=== PATIENT | male | born 1960 | race Caucasian/White ===

== ENCOUNTER 2020-05-29 22:39 | Inpatient (IN) | payer OTHER ==
[~2020-05-29] VITALS: Ht 180.3 cm; Wt 84.9 kg
[2020-05-29] MEDS ORDERED: MAGNESIUM SULFATE 1GM/100ML D5W BAG (10MG/ML) As Ordered ONE (22:56)
[2020-05-29] MEDS ORDERED: ADVA230A INH (23:22)
[2020-05-29] MEDS ORDERED: ALBU8.5H INH (23:22)
[2020-05-29] MEDS ORDERED: LANTINJ4 SC (23:22)
[2020-05-29 23:23] LABS: BASO # 0.1 10^3/uL (0.0-0.2); BASO % 0.6 % (0.0-1.0); EOS # 0.3 10^3/uL (0.0-0.5); EOS % 1.7 % (0.0-3.0); HEMATOCRIT 42.6 % (42.0-52.0); HEMOGLOBIN 13.7 g/dl (13.5-17.5); LYMPH # 2.2 10^3/uL (1.5-5.0); LYMPH % 13.9 % (24.0-44.0); MEAN CORPUSCULAR HEMOGLOBIN 28.9 pg (27.0-33.0); MEAN CORPUSCULAR HGB CONC 32.2 g/dl (32.0-36.5); MEAN CORPUSCULAR VOLUME 89.9 fl (80.0-96.0); MONO % 6.7 % (0.0-5.0); NEUTROPHILS # 11.7 10^3/uL (1.5-8.5); NEUTROPHILS % 76.1 % (36.0-66.0); PLATELET COUNT, AUTOMATED 291 10^3/uL (150-450); RED BLOOD COUNT 4.74 10^6/uL (4.30-6.10); WHITE BLOOD COUNT 15.4 10^3/uL (4.0-10.0)
[2020-05-29] MEDS ORDERED: cefTRIAXone SOD 2 GM in D5W MINI-BAG PLUS 50 ML IV ONE (23:30)
[2020-05-29 23:49] LABS: ALBUMIN 3.5 GM/DL (3.2-5.2); ALT/SGPT 31 U/L (12-78); BILIRUBIN,DIRECT 0.2 MG/DL (0.0-0.2); BILIRUBIN,TOTAL 0.6 MG/DL (0.2-1.0); BLOOD UREA NITROGEN 17 MG/DL (7-18); CALCIUM LEVEL 8.2 MG/DL (8.5-10.1); CARBON DIOXIDE LEVEL 24 MEQ/L (21-32); CHLORIDE LEVEL 103 MEQ/L (98-107); CREATININE FOR GFR 1.11 MG/DL (0.70-1.30); GLOMERULAR FILTRATION RATE > 60.0 (>56); GLUCOSE, FASTING 343 MG/DL (70-100); NT-PRO BNP 1292 PG/ML (<125); POTASSIUM SERUM 4.1 MEQ/L (3.5-5.1); SODIUM LEVEL 137 MEQ/L (136-145)
--- NOTE | 2020-05-29 23:58 | HPEPDOC ---
[facility] Medical History & Physical Date of Admission May 29, 2020 Date of Service: May 30, 2020 Attending Physician: JUSTINE RODRIGUEZ MD History and Physical TIME OF SERVICE: 12:10 AM CHIEF COMPLAINT: Shortness of breath HISTORY OF PRESENT ILLNESS: This is a 60-year-old gentleman who was brought in [facility] for evaluation of 3 day duration, gradually worsening shortness of breath associated with a cough. He denied having any fevers, chills, chest pain, abdominal pain or lower extremity edema, but admitted to having back pain and muscle aches. He denies having any sick contacts. Per Dr[facility] Wyman at the [facility], the patient given nebs and was noted to be hypoxic, but he refused to wear O2; in the ER, he was noted to have a pH of 7.15 with a PCO2 of 63 and agreed to wear BiPAP; he also received ceftriaxone for bilateral pneumonia. 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) IDDM SOCIAL HISTORY: Is been smoking for 40 years He denies drinking alcohol He denies recreational drug use He is incarcerated FAMILY HISTORY: Diabetes ALLERGIES: Please see below HOME MEDICATIONS: Please see below PHYSICAL EXAMINATION: Vital Signs Date Time Temp Pulse Resp B/P (MAP) Pulse Ox O2 Delivery O2 Flow Rate FiO2 05/29/20 22:48 96.7 133 38 163/92 55 Room Air 05/29/20 23:15 100 GEN: well nourished / well developed/ NAD INTEGUMENT: He doesn't have facial plethora/ He has multiple tattoos on his arms and abdomen HEENT:NCAT / BiPAP mask is in place CVS: He is tachycardic/ / radial pulses intact / no lower extremity edema LUNGS: He is able to speak full sentences without stopping to take a breath / He is using accessory muscles / He doesn't have decreased respiratory expansion/ He has coarse expiratory rhonchi bilaterally ABDOMEN: Distended/there are no masses or lesions MSK/EXTREMITIES: Arms and ankles are handcuffed, therefore, unable to assess range of motion NEURO: CN 2-12 are grossly intact / speech is not dysarthric PSYCH: alert and oriented / able to understand and follow all commands LABORATORY DATA: 05/29/20 23:12 05/29/20 22:59: POC pH (Misc Panel) 7.151*L, POC Base Excess (Misc Panel) -7.0L, POC Saturated Percent O2 (Misc) 92L, POC pO2 (Misc Panel) 84.0, POC pCO2 (Misc Panel) 63.1*H, POC HCO3 (Misc Panel) 22.1, POC Total CO2 (Misc Panel) 24.0 05/29/20 23:01: Bedside Glucose (Misc Panel) 327H 05/29/20 23:12: Immature Granulocyte % (Auto) 1.0, Neutrophils (%) (Auto) 76.1H, Lymphocytes (%) (Auto) 13.9L, Monocytes (%) (Auto) 6.7H, Eosinophils (%) (Auto) 1.7, Basophils (%) (Auto) 0.6, Neutrophils # (Auto) 11.7H, Lymphocytes # (Auto) 2.2, Monocytes # (Auto) 1.0H, Eosinophils # (Auto) 0.3, Basophils # (Auto) 0.1, Nucleated Red Blood Cells % (auto) 0.0, Anion Gap 10, Glomerular Filtration Rate > 60.0, Calcium Level 8.2L, Total Bilirubin 0.6, Direct Bilirubin 0.2, Aspartate Amino Transf (AST/SGOT) 24, Alanine Aminotransferase (ALT/SGPT) 31, Alkaline Phosphatase 64, QL-Xby-T-Type Natriuretic Peptide 1292H, Total Protein 7.0, Albumin 3.5, Albumin/Globulin Ratio 1.0 05/29/20 23:17: POC Troponin I (Misc) 0.03 05/29/20 23:21: POC Glucose (Misc Panel) 350H, POC Sodium (Misc Panel) 137, POC Potassium (Misc Panel) 3.8, POC Chloride (Misc Panel) 100, POC Total CO2 (Misc Panel) 22.0L, POC Blood Urea Nitrogen (Misc Panel 17, POC Ionized Calcium (Misc Panel) 4.5, POC Creatinine (Misc Panel) 0.9, POC Hematocrit (Misc Panel) 44.0 05/29/20 23:43: POC Total CO2 (Misc Panel) 25.0, POC pH (Misc Panel) 7.255L, POC Base Excess (Misc Panel) -3.0L, POC Saturated Percent O2 (Misc) 99H, POC pO2 (Misc Panel) 175.0H, POC pCO2 (Misc Panel) 53.4H, POC HCO3 (Misc Panel) 23.7 IMAGING: Chest x-ray: Based on bilateral visualization there appeared to be bilateral hazy infiltrates, more prominent on the right versus the left , but the final read is pending MICROBIOLOGY: 05/29/20 Blood Culture, Received Pending 05/29/20 Blood Culture, Received Pending 05/29/20 Respiratory Virus Panel (PCR) ([facility]) - Final, Complete ASSESSMENT: Mr. Rivera is a 60-year-old with a history of IDDM and COPD will be admitted for management of acute hypercapnic respiratory failure and acute COPD secondary to pneumonia. PLAN: 1. Acute Hypercapnic Respiratory Failure Based on chest x-ray likely 2/2 PNA His respiratory panel was negative BNP was elevated Plan: Admit to ICU / Pulm consult for BiPAP co-management (indications for BIPAP in this pt include RR of 38, pH of 7.15 & PaCO2 of 63) / while on BIPAP NPO with breaks for sips of water to reduce risk of aspiration / repeat ABG in the morning / treat PNA and COPD / f/u Echo to r/o Pulm HTN 2. Sepsis likely 2/2 PNA SIRS criteria include: HR >90 / WBC >12 / RR >20 PORT/PSI Score to predict risk of mortality in pt w CAP = 138 points = class V risk = 27-29.2% mortality Plan: telemetry / Sepsis protocol w lactic acid /continuous pulse ox & supplemental O2/ ceftriaxone, doxycycline, and vancomycin pending blood cx, sputum Cx, MRSA, strep pneumonia and legionella results/ Acetaminophen PRN for fever / target MAP of at least 65 / f/u Is and Os with target UOP of at least 0.5 ml/kg/H / target serum glucose 140-180 while acutely ill / f/u final chest x-ray report 3. Acute COPD 2/2 PNA Plan supplemental O2 / continuous pulse oximetry / aspiration precautions f/u ABG in the morning / Dunebs Q6H, Albuterol Q1HP, Solumedrol w IV PPI / abx as above / refer to Reflexologist for repeat PFTs and Pulmonary Rehab within 90 days of d/c which has been shown to reduce mortality 4. IDDM He denies having associated retinopathy, nephropathy or neuropathy Plan: f/u accuchecks & A1C / hypoglycemia protocol / sliding scale insulin / hold home meds (, metformin, Januvia, and glargine ) DVT PROPHYLAXIS: Lovenox DISPOSITION: Back into police custody after at least two midnight's stay LATE ENTRY 210AM I was called by the patient's RN because the pt asked to be intubated. On assessment the patient was more tachypneic w a HR in the 20s to 30s, using accessory muscles, diaphoretic and having difficulties speaking full sentences. Plan: we will consult Anesthesia to intubate him and call for vent management Home Medications Scheduled Fluticasone Propion/Salmeterol (Advair Hfa 230-21 Mcg Inhaler) 12 Gm Hfa.aer.ad, 2 PUFF INH BID Insulin Glargine,Hum.rec.anlog (Lantus Solostar) 100 Unit/1 Ml Insuln.pen, 10 UNITS SC QPM TAKES AROUND 1600 Metformin HCl (Metformin HCl) 1,000 Mg Tablet, 1,000 MG PO BID Sitagliptin Phosphate (Januvia) 100 Mg Tablet, 100 MG PO DAILY Scheduled PRN Albuterol Sulfate (Proair Hfa) 8.5 Gm Hfa.aer.ad, 2 PUFF INH Q4H PRN for SHORTNESS OF BREATH Ibuprofen (Ibuprofen) 600 Mg Tablet, 600 MG PO BID PRN for PAIN Allergies Coded Allergies: haloperidol (Verified Allergy, Intermediate, unknown, 05/29/20) A-FIB/CHADSVASC A-FIB History Current/History of A-Fib/PAF?: No Current PO Anticoag Therapy: No JUSTINE RODRIGUEZ MD May 29, 2020 23:57
[2020-05-30] VITALS (40 sets, daily range): BP systolic 72–181; BP diastolic 47–111; O2SAT 94
[2020-05-30] MEDS ORDERED: MOM 30ML SUSPENSION UDC PO PRN
[2020-05-30] MEDS ORDERED: ACETAMINOPHEN TAB 650MG DOSE (2X325MG) PO PRN
[2020-05-30] MEDS ORDERED: ALBUTEROL SULFATE 2.5 MG/0.5 ML INH NEB SOLN INH PRN
[2020-05-30] MEDS ORDERED: MAALOX 30 ML SUSP *UDC PO PRN
[2020-05-30] MEDS ORDERED: NS 2,700 ML in IV 1 EA IV ONE ×2
[2020-05-30] MEDS ORDERED: ADVA230A INH (00:27)
[2020-05-30] MEDS ORDERED: METF-877 PO (00:27)
[2020-05-30] MEDS ORDERED: JANU100T PO (00:27)
[2020-05-30] MEDS ORDERED: IBUP1TAB6 PO (00:27)
[2020-05-30] MEDS ORDERED: PROAAER10 INH (00:27)
[2020-05-30] MEDS ORDERED: LANTINJ4 SC (00:27)
[2020-05-30] MEDS ORDERED: methylPREDNISolone INJ 125 MG/2 ML VIAL (J2930) IV SCH (01:00)
[2020-05-30] MEDS ORDERED: DEXTROSE 50% 50 ML SYRINGE IV PRN (01:00)
[2020-05-30] MEDS ORDERED: VANCOMYCIN HCL 1,000 MG, VIAL MATE ADAPTER 1 EACH in D5W 250 ML IV ONE (01:00)
[2020-05-30] MEDS ORDERED: GLUCAGON INJ 1MG VIAL SC PRN (01:00)
[2020-05-30] MEDS ORDERED: GLUCOSE 4GM CHEW TABLET PO PRN (01:00)
[2020-05-30 01:14] LABS: HEMOGLOBIN A1c 6.6 %
[2020-05-30 01:18] LABS: TROPONIN I 0.02 NG/ML (< 0.10)
[2020-05-30] MEDS: IPRATROPIUM 0.5MG/ALBUTEROL 2.5MG INH SOL UD 3ML (DUONEB) INH SCH ×6 (01:32→19:53)
[2020-05-30] MEDS ORDERED: PROPOFOL 1,000 MG/100 ML VIAL As Ordered ONE (02:12)
[2020-05-30] MEDS ORDERED: ETOMIDATE INJ 20MG/10ML VIAL As Ordered ONE (02:14)
[2020-05-30] MEDS ORDERED: SUCCINYLCHOLINE INJ 200 MG/10 ML VIAL (J0330) As Ordered ONE (02:14)
[2020-05-30] MEDS ORDERED: MIDAZOLAM INJ 2MG/2ML VIAL (J2250 PER 1MG) As Ordered ONE (02:46)
[2020-05-30 03:01] LABS: HEMATOCRIT 38.7 % (42.0-52.0); HEMOGLOBIN 12.5 g/dl (13.5-17.5); MEAN CORPUSCULAR HEMOGLOBIN 29.3 pg (27.0-33.0); MEAN CORPUSCULAR HGB CONC 32.3 g/dl (32.0-36.5); MEAN CORPUSCULAR VOLUME 90.8 fl (80.0-96.0); PLATELET COUNT, AUTOMATED 211 10^3/uL (150-450); RED BLOOD COUNT 4.26 10^6/uL (4.30-6.10); WHITE BLOOD COUNT 14.7 10^3/uL (4.0-10.0)
[2020-05-30] MEDS: MIDAZOLAM INJ 2MG/2ML VIAL (J2250 PER 1MG) IV PRN ×7 (03:12→20:23)
[2020-05-30] MEDS: propofoL 1,000 MG in IV 1 EA IV SCH ×6 (03:13→23:44)
[2020-05-30] MEDS: DOXYCYCLINE HYCLATE 100 MG in D5W MINI-BAG PLUS 100 ML IV SCH ×2 (03:14→14:34)
[2020-05-30 03:18] LABS: ABG BASE EXCESS -7.3 (-2.0-2.0); ABG HCO3 21.2 MEQ/L (22.0-26.0); ABG O2 SATURATION 94.4 % (95.0-99.0); ABG PARTIAL PRESSURE CO2 56.2 mmHg (35.0-45.0); ABG PARTIAL PRESSURE O2 84.2 mmHg (75.0-100.0); ABG STANDARD HCO3 18.5 MEQ/L (22.0-26.0); ABG pH (ARTERIAL) 7.195 UNITS (7.350-7.450)
[2020-05-30 03:25] LABS: BLOOD UREA NITROGEN 16 MG/DL (7-18); CALCIUM LEVEL 6.8 MG/DL (8.5-10.1); CARBON DIOXIDE LEVEL 23 MEQ/L (21-32); CHLORIDE LEVEL 108 MEQ/L (98-107); CREATININE FOR GFR 0.79 MG/DL (0.70-1.30); GLOMERULAR FILTRATION RATE > 60.0 (>56); GLUCOSE, FASTING 255 MG/DL (70-100); MAGNESIUM LEVEL 2.1 MG/DL (1.8-2.4); POTASSIUM SERUM 4.3 MEQ/L (3.5-5.1); SODIUM LEVEL 136 MEQ/L (136-145)
[2020-05-30] MEDS ORDERED: VANCOMYCIN HCL 1,000 MG, VIAL MATE ADAPTER 1 EACH in D5W 250 ML IV SCH (04:00)
[2020-05-30 04:03] LABS: BASO % 0.1 % (0.0-1.0); EOS % 0.1 % (0.0-3.0); LYMPH # 0.4 10^3/uL (1.5-5.0); LYMPH % 2.4 % (24.0-44.0); MONO # 0.2 10^3/uL (0.0-0.8); MONO % 1.3 % (0.0-5.0); NEUTROPHILS # 14.2 10^3/uL (1.5-8.5); NEUTROPHILS % 95.7 % (36.0-66.0)
[2020-05-30 04:13] LABS: PLATELET ESTIMATE NORMAL (NORMAL)
[2020-05-30 04:19] LABS: ALBUMIN 3.1 GM/DL (3.2-5.2); ALT/SGPT 30 U/L (12-78); BILIRUBIN,TOTAL 0.7 MG/DL (0.2-1.0); CHOLESTEROL LEVEL 140 MG/DL (< 200); CPK CREATINE PHOSPHOKINASE 160 U/L (39-308); LDH LACTATE DEHYDROGENASE 208 U/L (87-241); PHOSPHORUS LEVEL 2.6 MG/DL (2.5-4.9); TOTAL PROTEIN 6.4 GM/DL (6.4-8.2); TRIGLYCERIDES LEVEL 108 MG/DL (<150)
[2020-05-30] MEDS ORDERED: SUCCINYLCHOLINE 100 MG/5 ML SYRINGE (J0330) ONE (05:07)
[2020-05-30] MEDS ORDERED: propofoL 200 MG/20 ML VIAL ONE (05:07)
[2020-05-30] MEDS ORDERED: NS 1,000 ML IV SCH (05:45)
[2020-05-30 05:49] LABS: ABG BASE EXCESS -2.8 (-2.0-2.0); ABG HCO3 20.2 MEQ/L (22.0-26.0); ABG O2 SATURATION 97.5 % (95.0-99.0); ABG PARTIAL PRESSURE CO2 29.7 mmHg (35.0-45.0); ABG PARTIAL PRESSURE O2 88.2 mmHg (75.0-100.0); ABG STANDARD HCO3 22.1 MEQ/L (22.0-26.0); ABG TOTAL CO2 21.1 MEQ/L (22.0-29.0)
[2020-05-30] MEDS: HumaLOG INSULIN (NovoLOG) PER UNIT SC SCH ×5 (05:54→23:43)
[2020-05-30 06:39] LABS: FERRITIN 88 NG/ML (26-388); IRON (FE) 26 UG/DL (65-175); PERCENT SATURATION 9.5 % (19.7-50.0); TOTAL IRON BINDING CAPACITY 275 UG/DL (250-450)
--- NOTE | 2020-05-30 07:48 | REP ---
Clinical: Shortness of breath. Comparison: None. Findings: Chronic COPD/emphysematous changes are suggested with superimposed lower lobe infiltrates and suspected small effusions (right greater than left). No pneumothorax. Cardiac silhouette appears to be upper limits of normal. Skeletal structures are intact. Impression: Diffuse bilateral infiltrates and small pleural effusions compatible with multifocal pneumonia. Electronically Signed by Alvino Forrester MD 05/30/2020 07:39 A
--- NOTE | 2020-05-30 07:51 | CCN ---
DATE: 05/30/2020 I was called to the intensive care unit to evaluate this 60-year-old male just intubated for respiratory failure. He presented earlier to the emergency department from the nursing home with dyspnea and was treated with oxygen therapy and subsequently noninvasive ventilation and transferred to the intensive care unit. Initial arterial blood gases showed hypercarbia and respiratory acidosis. His symptoms worsened and an endotracheal tube was placed and I was called. At bedside, he is sedate now with propofol, dyssynchronous from mechanical ventilation. His temperature is 98, pulse rate 109, respirations 28, blood pressure 120/69. HEENT: His pupils are small. There is an endotracheal tube at 23 cm. Orogastric tube is in good position. His neck is supple. Jugular venous distention is not clearly appreciated. The patient is straining against mechanical ventilation. Heart sounds are regular without appreciable murmur. Breath sounds have diffuse expiratory wheezes bilaterally. Chest is symmetric and moves symmetrically. Expiratory phase is prolonged. Abdomen: Soft, obese. Bowel sounds are hypoactive. Extremities: Show pulses x4. Diagnostic Studies: White cell count is 15.4, 76% neutrophils, 0 bands. Hemoglobin 13.7, hematocrit 42.6, platelet count 291,000. Sodium is 137, potassium 4.1, chloride 103, CO2 24, BUN 17, creatinine 1.1, glucose 343, calcium 8.2, albumin is 3.5, AST 24, ALT 31. Arterial blood gases at 2343 show a pH of 7.25, pCO2 53 and pO2 175. Chest imaging shows bilateral interstitial infiltrates, more consolidation on the right. The primary problem requiring critical attention is acute hypercarbic hypoxic respiratory failure - the patient's compliance is poor. Will ventilate with pressure control and recheck arterial blood gases. He is dyssynchronous from the ventilator at this point and pending his response to sedation may need paralysis to optimize ventilation. The patient also suffers from interstitial pneumonia versus acute respiratory distress syndrome (ARDS). Broad-spectrum antibiotics have been started. The patient did not have a significantly elevated temperature and white cell count was only marginally elevated. There is no shift. Will maintain a low fluid volume replacement pending response and cultures. Bronchospasm. Beta agonists have been given. I will increase the steroid dose to 80 every 8 hours. Deep vein thrombosis (DVT) prophylaxis is being addressed with Lovenox. Ulcer prophylaxis will be addressed with Protonix. The patient is hyperglycemic. Fingerstick blood sugars have been ordered. Will arrange for insulin coverage. I have reviewed the case with the attending hospitalist and the intensive care unit (ICU) staff. 1 hour and 26 minutes was spent in the provision of bedside critical care and coordination, exclusive of any procedure time.
--- NOTE | 2020-05-30 07:53 | REP ---
Clinical: Status post intubation. Comparison: 05/29/2020. Findings: Endotracheal tube approximately 4 cm above the gurpreet. Nasogastric tube extends just beyond the diaphragm and warrants advancement to ensure that the side port is below the level of the diaphragm and within the stomach. The cardiac silhouette is normal for portable technique. Lung cruz demonstrate chronic emphysematous changes with superimposed bilateral infiltrates (right greater than left) and possible small pleural reactions. Impression: 1. Endotracheal tube in satisfactory position. 2. Nasogastric tube warrants advancement. 3. Bilateral multifocal infiltrates (right greater than left) similar to prior examination. Electronically Signed by Alvino Forrester MD 05/30/2020 07:45 A
--- NOTE | 2020-05-30 08:26 | REP ---
Portable chest x-ray: Single view. 08:06 a.m. film. History: Question ARDS. Comparison chest x-ray: 02:40 a.m. film on this same date, to June 17, 2020. Findings: Endotracheal tube is seen in good position just below the proximal clavicles. An NG tube courses into the left upper quadrant. Oxygen delivery tubing and monitoring electrodes are seen overlying the chest. The lung cruz have improved with less interstitial edema diffusely. There are air bronchograms and persistent parenchymal opacity particularly on the right suggesting an infiltrate on the right. No mike pleural effusion is evident. Cardiomediastinal silhouette is unchanged. Electronically Signed by Ismael Hughes MD 05/30/2020 08:18 A
[2020-05-30] MEDS: PANTOPRAZOLE 40MG VIAL (C9113 PER 1) IV SCH (08:53)
[2020-05-30] MEDS: methylPREDNISolone INJ 125 MG/2 ML VIAL (J2930) IV SCH ×2 (08:53→17:20)
[2020-05-30] MEDS: CHLORHEXIDINE GLUCONATE 0.12 % 15ML UDC (PERIDEX ORAL RINSE) MT SCH ×2 (08:53→19:43)
[2020-05-30] MEDS: ENOXAPARIN 40MG/0.4ML SYRINGE (J1650 PER 10MG) SC SCH (08:53)
[2020-05-30] MEDS ORDERED: predniSONE 20 MG TAB PO SCH (09:00)
[2020-05-30] MEDS ORDERED: PANTOPRAZOLE 40MG TAB (PROTONIX) PO SCH (09:00)
[2020-05-30 10:18] LABS: ABG BASE EXCESS -2.7 (-2.0-2.0); ABG HCO3 19.7 MEQ/L (22.0-26.0); ABG O2 SATURATION 98.7 % (95.0-99.0); ABG PARTIAL PRESSURE CO2 27.6 mmHg (35.0-45.0); ABG PARTIAL PRESSURE O2 116.9 mmHg (75.0-100.0); ABG STANDARD HCO3 22.2 MEQ/L (22.0-26.0); ABG TOTAL CO2 20.5 MEQ/L (22.0-29.0); ABG pH (ARTERIAL) 7.471 UNITS (7.350-7.450)
[2020-05-30 13:15] LABS: CK-MB VALUE MASS 2.7 NG/ML (<3.6); MB/CK RELATIVE INDEX 1.49 (< OR =4)
--- NOTE | 2020-05-30 13:19 | IPNPDOC ---
Date Seen The patient was seen on 05/30/20. Progress Note SUBJECTIVE: Patient was seen and examined this morning lying in bed, intubated and sedated. He responds appropriately to painful stimuli. Otherwise, no subjective history could be obtained from patient. OBJECTIVE PHYSICAL EXAMINATION: VITAL SIGNS: Please see below. GENERAL: Alert, comfortable, in no acute distress HEENT: Normocephalic, atraumatic, PERRLA, endotracheal tube in place at 23 cm NECK: Supple, trachea midline, no lymphadenopathy, no JVD CARDIOVASCULAR: Tachycardic with regular rhythm, normal S1 and S2. No murmurs, rubs, or gallops RESPIRATORY: Diffuse expiratory wheezing bilaterally with prolonged expiratory phase. ABDOMEN: Soft, nondistended, bowel sounds present, no masses or hepatosplenomegaly appreciated EXTREMITIES: No cyanosis or edema. Pulses 2+/4 in bilateral upper and lower extremities NEUROLOGIC: Sedated, responds appropriately to painful stimuli LABORATORY DATA, IMAGING STUDIES, MICROBIOLOGY: Please see below. ASSESSMENT/PLAN: 52-year-old male with history of diabetes mellitus and COPD admitted with acute hypercapnic respiratory failure secondary to pneumonia 1. Acute hypercarbic hypoxic respiratory failure secondary to pneumonia Patient was initially treated with an NIMV, and subsequently required intubation. [employer] Operator/pulmonology consulted for vent management and further care, appreciate their input and recommendations. Currently on pressure control settings on the ventilator, sedated with propofol and Versed ABG showed improvement after ventilation. Echocardiogram pending to rule out pulmonary hypertension 2. Sepsis secondary to pneumonia Lactic acid improved to 1.6, WBC trending down, HR improved to 80s Continue antibiotics with IV ceftriaxone and IV doxycycline day #2. Sputum culture pending, MRSA screen negative, strep pneumoniae and legionella urine antigens pending 3.. COPD with acute exacerbation secondary to pneumonia. DuoNeb every 6 hours, albuterol q1h prn, antibiotics as noted above Currently on Solu-Medrol 80 mg every 8 hours per pulmonology 4. Diabetes mellitus. Hold home medications. Sliding-scale insulin while inpatient, hypoglycemic protocol. We will add basal insulin if indicated based on sliding scale insulin usage DVT prophylaxis: SC Lovenox. GI prophylaxis: IV Protonix DISPOSITION: Admitted inpatient to ICU, pending clinical improvement VS, I&O, 24H, Fishbone Vital Signs/I&O Vital Signs Date Time Temp Pulse Resp B/P (MAP) Pulse Ox O2 Delivery O2 Flow Rate FiO2 05/30/20 10:07 81 95/57 (70) 98 Ventilator 85 05/30/20 08:00 97.3 18 I&O- Last 24 Hours up to 6 AM 05/30/20 06:00 Intake Total 3390 ml Output Total 870 ml Balance 2520 ml Laboratory Data 24H LABS Laboratory Tests 2 05/29/20 22:59: POC pH (Misc Panel) 7.151*L, POC Base Excess (Misc Panel) -7.0L, POC Saturated Percent O2 (Misc) 92L, POC pO2 (Misc Panel) 84.0, POC pCO2 (Misc Panel) 63.1*H, POC HCO3 (Misc Panel) 22.1, POC Total CO2 (Misc Panel) 24.0 05/29/20 23:01: Bedside Glucose (Misc Panel) 327H 05/29/20 23:12: Immature Granulocyte % (Auto) 1.0, Neutrophils (%) (Auto) 76.1H, Lymphocytes (%) (Auto) 13.9L, Monocytes (%) (Auto) 6.7H, Eosinophils (%) (Auto) 1.7, Basophils (%) (Auto) 0.6, Neutrophils # (Auto) 11.7H, Lymphocytes # (Auto) 2.2, Monocytes # (Auto) 1.0H, Eosinophils # (Auto) 0.3, Basophils # (Auto) 0.1, Nucleated Red Blood Cells % (auto) 0.0, Anion Gap 10, Glomerular Filtration Rate > 60.0, Estimated Mean Plasma Glucose 143H, Hemoglobin A1c 6.6, Lactic Acid Level 3.9*H, Calcium Level 8.2L, Total Bilirubin 0.6, Direct Bilirubin 0.2, Aspartate Amino Transf (AST/SGOT) 24, Alanine Aminotransferase (ALT/SGPT) 31, Alkaline Phosphatase 64, Troponin I 0.02, EG-Wma-L-Type Natriuretic Peptide 1292H, Total Protein 7.0, Albumin 3.5, Albumin/Globulin Ratio 1.0 05/29/20 23:17: POC Troponin I (Misc) 0.03 05/29/20 23:21: POC Glucose (Misc Panel) 350H, POC Sodium (Misc Panel) 137, POC Potassium (Misc Panel) 3.8, POC Chloride (Misc Panel) 100, POC Total CO2 (Misc Panel) 22.0L, POC Blood Urea Nitrogen (Misc Panel 17, POC Ionized Calcium (Misc Panel) 4.5, POC Creatinine (Misc Panel) 0.9, POC Hematocrit (Misc Panel) 44.0 05/29/20 23:43: POC Total CO2 (Misc Panel) 25.0, POC pH (Misc Panel) 7.255L, POC Base Excess (Misc Panel) -3.0L, POC Saturated Percent O2 (Misc) 99H, POC pO2 (Misc Panel) 175.0H, POC pCO2 (Misc Panel) 53.4H, POC HCO3 (Misc Panel) 23.7 05/30/20 01:26: Bedside Glucose (Misc Panel) 163H 05/30/20 02:55: Immature Granulocyte % (Auto) 0.4, Neutrophils (%) (Auto) 95.7H, Lymphocytes (%) (Auto) 2.4L, Monocytes (%) (Auto) 1.3, Eosinophils (%) (Auto) 0.1, Basophils (%) (Auto) 0.1, Neutrophils # (Auto) 14.2H, Lymphocytes # (Auto) 0.4L, Monocytes # (Auto) 0.2, Eosinophils # (Auto) 0.0, Basophils # (Auto) 0.0, Immature Granulocyte # (Auto) 0.1H, Nucleated Red Blood Cells % (auto) 0.0, Platelet Estimate NORMAL, Anion Gap 5L, Glomerular Filtration Rate > 60.0, Lactic Acid Level 1.6, Calcium Level 6.8#L, Phosphorus Level 2.6, Magnesium Level 2.1, Iron Level 26L, Total Iron Binding Capacity 275, Transferrin % Saturation 9.5L, Ferritin 88, Total Bilirubin 0.7, Aspartate Amino Transf (AST/SGOT) 29, Alanine Aminotransferase (ALT/SGPT) 30, Alkaline Phosphatase 57, Lactate Dehydrogenase 208, Total Creatine Kinase 160, Total Protein 6.4, Albumin 3.1L, Albumin/Globulin Ratio 0.9, Triglycerides Level 108, Cholesterol Level 140 05/30/20 03:10: Blood Gas Bicarbonate Standard 18.5L, Arterial Blood pH 7.195*L, Arterial Blood Partial Pressure CO2 56.2H, Arterial Blood Partial Pressure O2 84.2, Arterial Blood Total CO2 23.0, Arterial Blood HCO3 21.2L, Arterial Blood Base Excess - 7.3L, Arterial Blood Oxygen Saturation 94.4L 05/30/20 05:27: Blood Gas Bicarbonate Standard 22.1, Arterial Blood pH 7.450, Arterial Blood Partial Pressure CO2 29.7L, Arterial Blood Partial Pressure O2 88.2, Arterial Blood Total CO2 21.1L, Arterial Blood HCO3 20.2L, Arterial Blood Base Excess - 2.8L, Arterial Blood Oxygen Saturation 97.5 05/30/20 05:48: Bedside Glucose (Misc Panel) 260H 05/30/20 08:35: Methicillin-Resist S.aureus DNA PCR NOT DETECTED 05/30/20 10:03: Blood Gas Bicarbonate Standard 22.2, Arterial Blood pH 7.471H, Arterial Blood Partial Pressure CO2 27.6L, Arterial Blood Partial Pressure O2 116.9H, Arterial Blood Total CO2 20.5L, Arterial Blood HCO3 19.7L, Arterial Blood Base Excess - 2.7L, Arterial Blood Oxygen Saturation 98.7 05/30/20 12:19: 05/30/20 12:38: Bedside Glucose (Misc Panel) 205H CBC/BMP Laboratory Tests 05/29/20 23:12 05/30/20 02:55 Microbiology Microbiology 05/29/20 Blood Culture, Received Pending 05/29/20 Blood Culture, Received Pending 05/29/20 Respiratory Virus Panel (PCR) ([facility]) - Final, Complete GME ATTESTATION GME ATTESTATION My faculty preceptor for this patient encounter was physically present during the encounter and was fully available. All aspects of the patient interview, examination, medical decision making process, and medical care plan development were reviewed and approved by the faculty preceptor. The faculty preceptor is aware and concurs with the plan as stated in the body of this note and will attest to such by his/her cosignature. ATTENDING NOTE Patient was seen and examined by me. Agree with the above assessment and plan NUBIA XAVIER D.O. May 30, 2020 13:19 JESÚS MANNING MD May 30, 2020 14:25
--- NOTE | 2020-05-30 15:02 | CCN ---
DATE: CRITICAL CARE NOTE: I was called back the patient's bedside in the intensive care unit. He is continuing on ventilatory support, has minimal spontaneous efforts. Does appear more comfortable with the ventilator at this point. His temperature is 97, pulse rate 82, respirations 18/18 delivered, blood pressure 103/62. Intake and output for the past 24 hours 3340 in, 870 out. At bedside, he is ill appearing. His endotracheal tube is at 23 cm. Neck is supple. No meningismus. Heart sounds are regular. Breath sounds much less wheeze now. Expiratory phase remains prolonged. The abdomen is soft. There are bowel sounds in right lower quadrant. Extremities show trace of dependent edema. Diagnostic studies this morning his sodium is 136, potassium 4.3, chloride 108, CO2 23, BUN 16, creatinine 0.79, glucose 255. White cell count is down to 14.7, hemoglobin 12.5, hematocrit 38.7, platelet count 211,000. Arterial blood gases show pH 7.41, pCO2 38, pO2 86, this on pressure control, peak of 25 over PEEP of 5, FiO2 0.85. His phosphorus is 2.6. Chest x-ray was updated at 8 this morning and his interstitium is showing less infiltrate. He is receiving ceftriaxone, vancomycin, and doxycycline day #2. Cultures are pending. The primary problem requiring continued critical care is acute respiratory failure. His gas exchange is somewhat better with increases in minute ventilation, still he is quite hypoxemic. I will increase his PEEP, decrease the peak pressure and recheck arterial blood gases. From an infectious disease standpoint, he is on broad-spectrum antibiotics but cultures are pending. Profound hypoxemia raises the specter of acute respiratory distress syndrome (ARDS). We will continue limited fluid administration approach. Deep venous thrombosis (DVT) and ulcer prophylaxis are in place. Glycemic control is being addressed. I have updated the nursing staff and respiratory therapist as well as the hospitalist staff. 43 minutes was spent in the provision of bedside critical care and coordination exclusive of procedure time.
--- NOTE | 2020-05-30 18:04 | ECHO ---
DATE OF PROCEDURE: 05/30/2020 AGE: 60. GENDER: Male. Height: 71 inches. Weight: 207 pounds. Body surface area: 2.14 sq m Inpatient: Intensive care unit (ICU) room 3210. REFERRING PHYSICIAN: Jocelyn Rachel MD INDICATION: Dyspnea. MEASUREMENTS: 2D MEASUREMENTS: RV: 4.2 cm LV: 5.5 cm Septum: 1.2 cm Posterior wall: 1.2 cm Aortic root: 3.4 cm LA: 4.5 cm LVEF: 20-30% DOPPLER MEASUREMENTS: AV: 0.91 m/s LVOT: 0.71 m/s LVOT diameter: 1.8 cm MV-E: 58 A: 52 E/A ratio: 1.1 Early mitral deceleration time 177 ms. E prime medial: 6 A prime medial: 9.3 E prime lateral: 4.6 Average E/E prime ratio: 10.9 /PCWP: 15.5 mmHg PV 0.8 m/s Pulmonary artery acceleration time: 106 ms RVSP: 35 mmHg IVC: 2.2 cm with reduced respiratory collapse. COMMENTS: Normal sinus rhythm with left bundle branch block. Technically challenging study in light of the patient's body habitus and currently intubated on a mechanical ventilator in the intensive care unit. Diagnostically useful information was still obtained. M-mode and two-dimensional echocardiography was performed with pulsed, continuous wave, color flow and tissue Doppler studies. Left ventricle upper limits of normal in size with borderline symmetrical hypertrophy. Paradoxical septal motion and apical akinesis suggestive of left bundle branch block. Lateral wall motion was normal but inferior and anterior turcios appeared to be somewhat hypokinetic. Fairly severe impairment of global resting systolic function. At least mildly dilated left atrium with grade 2 left ventricular (LV) diastolic dysfunction, but currently estimated mean left atrial pressure upper limits of normal. Borderline dilated right heart chambers with normal right ventricular free wall motion and Doppler evidence of mild pulmonary hypertension. Mildly dilated inferior vena cava (IVC) with reduced respiratory collapse in keeping with an elevated central venous pressure. Normal aortic dimensions. Three equal sized aortic cusps with adequate cusp separation but slight premature cusp closure in keeping with reduced forward stroke volume. Normal-appearing mitral valvular apparatus with somewhat "low flow" appearance to leaflet excursion, but no posterior systolic buckling and no apparent insufficiency. Normal-appearing tricuspid valve with trace insufficiency. No apparent intracardiac mass or pericardial effusion. MTDD
[2020-05-30] MEDS: cefTRIAXone SOD 1 GM in D5W MINI-BAG PLUS 50 ML IV SCH (23:43)
[2020-05-31] VITALS (27 sets, daily range): BP systolic 88–128; BP diastolic 52–82
[2020-05-31] MEDS: IPRATROPIUM 0.5MG/ALBUTEROL 2.5MG INH SOL UD 3ML (DUONEB) INH SCH ×6 (00:17→19:22)
[2020-05-31] MEDS: methylPREDNISolone INJ 125 MG/2 ML VIAL (J2930) IV SCH ×2 (00:39→08:00)
[2020-05-31] MEDS: MIDAZOLAM INJ 2MG/2ML VIAL (J2250 PER 1MG) IV PRN ×9 (02:00→22:13)
[2020-05-31] MEDS: propofoL 1,000 MG in IV 1 EA IV SCH ×5 (02:50→22:24)
[2020-05-31] MEDS: DOXYCYCLINE HYCLATE 100 MG in D5W MINI-BAG PLUS 100 ML IV SCH (02:50)
[2020-05-31] MEDS: HumaLOG INSULIN (NovoLOG) PER UNIT SC SCH ×3 (05:08→17:40)
[2020-05-31 05:23] LABS: BASO % 0.1 % (0.0-1.0); EOS % 0.1 % (0.0-3.0); HEMATOCRIT 38.9 % (42.0-52.0); LYMPH # 0.6 10^3/uL (1.5-5.0); LYMPH % 3.5 % (24.0-44.0); MEAN CORPUSCULAR HEMOGLOBIN 29.5 pg (27.0-33.0); MEAN CORPUSCULAR HGB CONC 33.4 g/dl (32.0-36.5); MEAN CORPUSCULAR VOLUME 88.2 fl (80.0-96.0); MONO # 0.7 10^3/uL (0.0-0.8); NEUTROPHILS # 16.6 10^3/uL (1.5-8.5); NEUTROPHILS % 91.7 % (36.0-66.0); PLATELET COUNT, AUTOMATED 194 10^3/uL (150-450); RED BLOOD COUNT 4.41 10^6/uL (4.30-6.10); WHITE BLOOD COUNT 18.1 10^3/uL (4.0-10.0)
[2020-05-31 05:47] LABS: ALT/SGPT 31 U/L (12-78); BILIRUBIN,TOTAL 0.6 MG/DL (0.2-1.0); BLOOD UREA NITROGEN 17 MG/DL (7-18); CALCIUM LEVEL 8.4 MG/DL (8.5-10.1); CARBON DIOXIDE LEVEL 21 MEQ/L (21-32); CHLORIDE LEVEL 109 MEQ/L (98-107); CHOLESTEROL LEVEL 153 MG/DL (< 200); CPK CREATINE PHOSPHOKINASE 179 U/L (39-308); CREATININE FOR GFR 0.88 MG/DL (0.70-1.30); GLOMERULAR FILTRATION RATE > 60.0 (>56); GLUCOSE, FASTING 262 MG/DL (70-100); LDH LACTATE DEHYDROGENASE 195 U/L (87-241); PHOSPHORUS LEVEL 1.7 MG/DL (2.5-4.9); POTASSIUM SERUM 3.6 MEQ/L (3.5-5.1); SODIUM LEVEL 135 MEQ/L (136-145); TOTAL PROTEIN 6.7 GM/DL (6.4-8.2); TRIGLYCERIDES LEVEL 71 MG/DL (<150)
[2020-05-31 05:54] LABS: ABG BASE EXCESS -0.8 (-2.0-2.0); ABG HCO3 21.3 MEQ/L (22.0-26.0); ABG PARTIAL PRESSURE CO2 27.9 mmHg (35.0-45.0); ABG PARTIAL PRESSURE O2 96.3 mmHg (75.0-100.0); ABG STANDARD HCO3 23.8 MEQ/L (22.0-26.0); ABG TOTAL CO2 22.1 MEQ/L (22.0-29.0)
[2020-05-31] MEDS: PANTOPRAZOLE 40MG VIAL (C9113 PER 1) IV SCH (08:00)
[2020-05-31] MEDS: CHLORHEXIDINE GLUCONATE 0.12 % 15ML UDC (PERIDEX ORAL RINSE) MT SCH ×2 (08:00→20:39)
[2020-05-31] MEDS: ENOXAPARIN 40MG/0.4ML SYRINGE (J1650 PER 10MG) SC SCH (08:00)
[2020-05-31 08:20] LABS: MAGNESIUM LEVEL 2.7 MG/DL (1.8-2.4)
--- NOTE | 2020-05-31 08:21 | REP ---
Clinical: Endotracheal tube placement. Comparison: 05/30/2020, 05/29/2020. Findings: Endotracheal tube approximately 3 cm above the gurpreet. Nasogastric tube courses below left hemidiaphragm. Mediastinum and cardiac silhouette are stable. Lung cruz demonstrate chronic COPD/emphysematous changes along with lower lobe infiltrates/opacities similar to prior examination. No pneumothorax. Skeletal structures intact. Impression: 1. Endotracheal tube and nasogastric tube in satisfactory position. 2. Lower lobe opacities similar to most recent prior examination. Electronically Signed by Alvino Forrester MD 05/31/2020 08:13 A
[2020-05-31] MEDS ORDERED: CARVedilol 3.125 MG TAB PO SCH (09:00)
[2020-05-31] MEDS ORDERED: FUROSEMIDE 40MG/4ML VIAL (J1940) IV ONE (10:00)
[2020-05-31] MEDS ORDERED: POTASSIUM CHL PWD 20 MEQ PACKET GT ONE (10:00)
--- NOTE | 2020-05-31 11:41 | CCN ---
DATE OF SERVICE: 05/31/2020 Mr. Rivera is seen in the intensive care unit (ICU). He remains on the ventilator. Sedation was turned down and the patient does respond to commands. Nursing denies any new issues or problems overnight. He has remained afebrile. He does remain in sinus tachycardia. The patient is making urine and his urine output is about 125 mL an hour. PHYSICAL EXAMINATION: Temperature 97.3, pulse 101, respiratory rate 22, blood pressure is 127/80, pulse ox 92%. The patient is on the ventilator and initially is on pressure control at 20, with a rate of 18, PEEP of 8, and FIO2 of 30. Tidal volumes are averaging around 850. General: When sedation is turned down, the patient is alert and follows commands. HEENT: Head is normocephalic, atraumatic. Pupils reactive. Moist mucous membranes. Neck: Neck is supple. Trachea is midline. No cervical lymphadenopathy. No obvious jugular venous distention (JVD. Chest is clear to auscultation bilaterally. No wheezes, rales, rhonchi or crackles. Heart: Tachycardia. No obvious murmurs appreciated. Abdomen: Positive bowel sounds, soft, nontender. Extremities: No clubbing, cyanosis or edema. No sacral edema. Skin is warm and dry. LABORATORY DATA: ABG: pH 7.5, pCO2 27.9, pO2 96.3. Sodium 135, potassium 3.6, chloride 109, carbon dioxide 21, BUN 17, creatinine 0.88, glucose 262, calcium 8.4, phosphorus 1.7, magnesium 2.7, total bilirubin 0.6, AST 21, ALT 31, alkaline phosphatase 49, LD 195, total CK 179, total protein 6.7, albumin 3.0, triglycerides 71, cholesterol 153. WBC 18.1, hemoglobin 13.0, hematocrit 38.9, and platelets 194. Chest x-ray shows endotracheal tube about 3 cm above the gurpreet. There is emphysema. There is some increased vascular markings. Infiltrates at the bilateral bases, right greater than left, with some improvement compared to yesterday. Bedside ultrasound was performed and findings are more consistent with failure than pneumonia. ASSESSMENT/PLAN: 1. Acute respiratory failure. The patient remains on the ventilator. With increased pressure control, he was more tachycardia and oxygen saturations were lower. Therefore, we will turn the ventilator pressure control settings down and place the patient on 07/06 with a rate of 15. The patient is not yet ready for extubation. Likely, the patient's cardiac issues will need to be better controlled before we can attempt extubation. We would recommend a cardiology consult. 2. Cardiomyopathy. As noted, the patient does have cardiomyopathy. Echocardiogram does show this LVEF between 20 and 30% and diastolic dysfunction. We recommend a cardiology consult due to cardiomyopathy. I spoke to Dr. Power, the hospitalist, who said that he would consult cardiology. The patient does have some volume overload and bedside ultrasound suggests heart failure versus pneumonia. He will be given a one time dose of Lasix 40 mg IV x1. The patient is in sinus tacchycardia. We were going to start metoprolol for rate control, however, we talked to Dr. Power the hospitalist who stated that he would prefer Coreg, and he would order the Coreg for rate control. I did discuss anticoagulation with Dr. Power and recommended a heparin drip. Dr. Power stated that he would address anticoagualtion, therefore we will defer the anticoagualtion to him. 3. Abnormal chest x-ray. Chest x-ray does show some improvement in the infiltrates at the bases and again as noted above bedside ultrasound suggests this is likely due to heart failure versus pneumonia. Because of the suggestion of heart failure and the patient's low procalcitonin level on 05/29/2020 which was 0.3, we will discontinue the doxycycline and the vancomycin. Will continue the ceftriaxone for now. 4. Hypophosphatemia. Will place the patient on K-Phos. 5. Hypokalemia. Will supplement the patient's potassium, especially with the addition of the Lasix. 6. Hyperglycemia. The patient is hyperglycemic. Suspect this is in part due to the Solu-Medrol. We will decrease the Solu-Medrol dose. TOTAL CRITICAL CARE TIME: Excluding all procedures was 1 hour and 15 minutes. MTDD
[2020-05-31] MEDS ORDERED: POTASSIUM PHOSPHATE INJ 20 MMOL in D5W 250 ML IV ONE (12:00)
[2020-05-31] MEDS ORDERED: METOPROLOL TART 25 MG TABLET PO SCH (12:00)
--- NOTE | 2020-05-31 13:25 | IPNPDOC ---
Text Note Date of Service The patient was seen on 05/31/20. NOTE SUBJECTIVE: Patient was seen and examined this morning lying in bed, intubated and awake, although somewhat sedated. He responds to commands appropriately. No issues overnight per nursing. OBJECTIVE PHYSICAL EXAMINATION: VITAL SIGNS: Please see below. GENERAL: Alert, comfortable, in no acute distress HEENT: Normocephalic, atraumatic, PERRLA, endotracheal tube in place at 23 cm NECK: Supple, trachea midline, no lymphadenopathy, no JVD CARDIOVASCULAR: Tachycardic with regular rhythm, normal S1 and S2. No murmurs, rubs, or gallops RESPIRATORY: Diffuse expiratory wheezing bilaterally with prolonged expiratory phase. ABDOMEN: Soft, nondistended, bowel sounds present, no masses or hepatosplenomegaly appreciated EXTREMITIES: No cyanosis or edema. Pulses 2+/4 in bilateral upper and lower extremities NEUROLOGIC: Sedated, responds appropriately to painful stimuli LABORATORY DATA, IMAGING STUDIES, MICROBIOLOGY: Please see below. ASSESSMENT/PLAN: 52-year-old male with history of diabetes mellitus and COPD admitted with acute hypercapnic respiratory failure secondary to pneumonia # Acute on chronic systolic and diastolic heart failure, suspicious ischemic cardiomyopathy -Echocardiogram revealed wall motion abnormalities, systolic dysfunction with EF 20-30%, grade 2 LV diastolic dysfunction. -BNP elevated at 1292, no prior available for comparison -One dose IV lasix 40mg given today, will continue to diuresis based on his response -started on coreg 3.125mg bid, will titrate up as tolerated by his HR and blood pressure -Cardiology consult with Dr. Kwok, appreciate his input and recommendations for further management. # Acute hypercarbic hypoxic respiratory failure secondary to pneumonia vs acute heart failure Patient was initially treated with an NIMV, and subsequently required intubation. Manager Story/pulmonology consulted for vent management and further care, appreciate their input and recommendations. Currently on pressure control settings on the ventilator, sedated with propofol and Versed ABG showed improvement after ventilation. Will likely need cardiac optimization as noted above prior to extubation # Sepsis criteria met possibly secondary to pneumonia Lactic acid improved to 1.6, WBC trending down, HR improved to 80s Sputum culture pending, MRSA screen negative, strep pneumoniae and legionella urine antigens pending Continue antibiotics with IV ceftriaxone day #3. -Procalcitonin level low, abx have been de-escalated and will likely be discontinued if he improved with treatment of heart failure # COPD with acute exacerbation secondary to pneumonia. DuoNeb every 6 hours, albuterol q1h prn, antibiotics as noted above Currently on Solu-Medrol 40 mg every 12 hours per pulmonology # Hypophosphatemia and hypokalemia - continue electrolyte supplementation as indicated # Diabetes mellitus. Hold home medications. Sliding-scale insulin while inpatient, hypoglycemic protocol. We will add basal insulin if indicated based on sliding scale insulin usage -he continues on IV steroids which will also cause hyperglycemia DVT prophylaxis: SC Lovenox. GI prophylaxis: IV Protonix DISPOSITION: Admitted inpatient to ICU, pending clinical improvement VS,Fishbone, I+O VS, Fishbone, I+O Laboratory Tests 05/31/20 05:07 Vital Signs Date Time Temp Pulse Resp B/P (MAP) Pulse Ox O2 Delivery O2 Flow Rate FiO2 05/31/20 12:10 105 24 94 40 05/31/20 12:00 97.5 101/56 (71) Ventilator I&O- Last 24 Hours up to 6 AM 05/31/20 06:00 Intake Total 1554.4 ml Output Total 2460 ml Balance -905.6 ml GME ATTESTATION GME ATTESTATION My faculty preceptor for this patient encounter was physically present during the encounter and was fully available. All aspects of the patient interview, examination, medical decision making process, and medical care plan development were reviewed and approved by the faculty preceptor. The faculty preceptor is aware and concurs with the plan as stated in the body of this note and will attest to such by his/her cosignature. ATTENDING NOTE Patient was seen and examined by me. With the above assessment and plan NUBIA XAVIER D.O. May 31, 2020 13:25 JESÚS MANNING MD May 31, 2020 16:00
[2020-05-31] MEDS: methylPREDNISolone INJ 40 MG/1 ML VIAL (J2920) IV SCH (14:24)
--- NOTE | 2020-05-31 16:42 | ECGEPIP ---
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
[2020-05-31] MEDS: DIGOXIN INJ 0.5 MG/2 ML AMP (J1160) IV SCH (19:47)
[2020-05-31] MEDS: METOPROLOL TART 12.5 MG PER 1/2 TAB PO SCH (20:39)
[2020-06-01] VITALS (50 sets, daily range): BP systolic 91–160; BP diastolic 52–93
[2020-06-01] MEDS: HumaLOG INSULIN (NovoLOG) PER UNIT SC SCH ×5 (00:05→20:51)
[2020-06-01] MEDS: cefTRIAXone SOD 1 GM in D5W MINI-BAG PLUS 50 ML IV SCH (00:05)
[2020-06-01] MEDS: IPRATROPIUM 0.5MG/ALBUTEROL 2.5MG INH SOL UD 3ML (DUONEB) INH SCH ×6 (00:18→19:31)
[2020-06-01] MEDS: propofoL 1,000 MG in IV 1 EA IV SCH ×2 (00:48→04:19)
[2020-06-01] MEDS: MIDAZOLAM INJ 2MG/2ML VIAL (J2250 PER 1MG) IV PRN (02:00)
[2020-06-01] MEDS: DIGOXIN INJ 0.5 MG/2 ML AMP (J1160) IV SCH ×3 (02:00→13:37)
[2020-06-01] MEDS: methylPREDNISolone INJ 40 MG/1 ML VIAL (J2920) IV SCH (02:00)
[2020-06-01 05:07] LABS: BASO % 0.1 % (0.0-1.0); EOS % 0.1 % (0.0-3.0); HEMATOCRIT 37.7 % (42.0-52.0); HEMOGLOBIN 12.2 g/dl (13.5-17.5); LYMPH # 0.6 10^3/uL (1.5-5.0); LYMPH % 3.9 % (24.0-44.0); MEAN CORPUSCULAR HEMOGLOBIN 28.8 pg (27.0-33.0); MEAN CORPUSCULAR HGB CONC 32.4 g/dl (32.0-36.5); MEAN CORPUSCULAR VOLUME 89.1 fl (80.0-96.0); MONO # 0.8 10^3/uL (0.0-0.8); MONO % 5.2 % (0.0-5.0); NEUTROPHILS # 13.8 10^3/uL (1.5-8.5); NEUTROPHILS % 89.3 % (36.0-66.0); PLATELET COUNT, AUTOMATED 198 10^3/uL (150-450); RED BLOOD COUNT 4.23 10^6/uL (4.30-6.10); WHITE BLOOD COUNT 15.5 10^3/uL (4.0-10.0)
[2020-06-01 05:28] LABS: ALBUMIN 2.9 GM/DL (3.2-5.2); ALT/SGPT 37 U/L (12-78); BILIRUBIN,TOTAL 0.2 MG/DL (0.2-1.0); BLOOD UREA NITROGEN 29 MG/DL (7-18); CALCIUM LEVEL 8.1 MG/DL (8.5-10.1); CARBON DIOXIDE LEVEL 25 MEQ/L (21-32); CHLORIDE LEVEL 110 MEQ/L (98-107); CHOLESTEROL LEVEL 167 MG/DL (< 200); CPK CREATINE PHOSPHOKINASE 126 U/L (39-308); CREATININE FOR GFR 0.84 MG/DL (0.70-1.30); GLOMERULAR FILTRATION RATE > 60.0 (>56); GLUCOSE, FASTING 220 MG/DL (70-100); LDH LACTATE DEHYDROGENASE 215 U/L (87-241); PHOSPHORUS LEVEL 2.7 MG/DL (2.5-4.9); POTASSIUM SERUM 4.9 MEQ/L (3.5-5.1); SODIUM LEVEL 143 MEQ/L (136-145); TOTAL PROTEIN 6.2 GM/DL (6.4-8.2); TRIGLYCERIDES LEVEL 97 MG/DL (<150)
[2020-06-01 05:59] LABS: ABG BASE EXCESS -1.6 (-2.0-2.0); ABG HCO3 21.7 MEQ/L (22.0-26.0); ABG PARTIAL PRESSURE CO2 32.1 mmHg (35.0-45.0); ABG PARTIAL PRESSURE O2 104.6 mmHg (75.0-100.0); ABG STANDARD HCO3 23.2 MEQ/L (22.0-26.0); ABG TOTAL CO2 22.6 MEQ/L (22.0-29.0); ABG pH (ARTERIAL) 7.447 UNITS (7.350-7.450)
[2020-06-01] MEDS: METOPROLOL TART 12.5 MG PER 1/2 TAB PO SCH (07:38)
--- NOTE | 2020-06-01 07:43 | REP ---
Clinical: Respiratory distress. Intubation. Comparison: 05/31/2020, 05/30/2020. Findings: Endotracheal tube and nasogastric tube are in satisfactory position. Mediastinum and cardiac silhouette are normal / stable. Bilateral lower lobe infiltrates (right greater than left) appears similar to 05/31/2020, but improved as compared to 05/30/2020. No new acute process identified. Impression: Continued evidence for bilateral infiltrates (right greater than left) Electronically Signed by Alvino Forrester MD 06/01/2020 07:34 A
[2020-06-01] MEDS: ENOXAPARIN 40MG/0.4ML SYRINGE (J1650 PER 10MG) SC SCH (08:00)
[2020-06-01] MEDS: CHLORHEXIDINE GLUCONATE 0.12 % 15ML UDC (PERIDEX ORAL RINSE) MT SCH (08:00)
[2020-06-01] MEDS: PANTOPRAZOLE 40MG VIAL (C9113 PER 1) IV SCH (08:00)
[2020-06-01] MEDS ORDERED: FUROSEMIDE 20MG/2ML VIAL (J1940) IV SCH (09:00)
[2020-06-01] MEDS ORDERED: FUROSEMIDE 40MG/4ML VIAL (J1940) IV SCH (09:00)
--- NOTE | 2020-06-01 09:36 | CCN ---
DATE: 06/01/2020 CRITICAL CARE TIME: 1 hour 10 minutes; this excludes all procedures. Mr. Shawn Rivera is a 60-year-old male who has cardiomyopathy, ejection fraction 20%, undetermined etiology as of yet, as he has not gone through ischemic testing. At this point in time this morning, he did pass his spontaneous breathing trial, though his heart rate is a little higher than I would like to see it. I believe he could use some more beta-blockade. Cardiology was consulted yesterday. Primary team and cardiology managing his heart rate control. Currently, sinus tachycardia ranging 93 to 104. Blood pressure ranging from 107 systolic to 138 after extubation. Patient is high risk for reintubation. If he has worsening hypoxia, would consider noninvasive ventilation. Overnight, there were no significant arrhythmias. Arterial blood gas this morning shows a pH of 7.45, pCO2 of 32, PaO2 of 105 on 0.35 FiO2. Temperature is 97.8. Pulse, as mentioned above, ranging sinus tachycardia 96-104. Respiratory rate is 23. Blood pressure as mentioned above. Oxygen saturation as mentioned above. No significant diuresis on his intake and output. General: Patient is awake, following commands. HEENT: Sclerae clear and anicteric. Pupils equal and reactive to light. Mucous membranes are moist. Tongue is midline. Neck: There is no stridor. No tracheal deviation. No mass. Lymphatics: No cervical, supraclavicular, or axillary adenopathy. Cardiac: Tachycardic. S1, S2. Distant heart sounds. I am unable to auscultate any murmur, rub, or gallop. No elevated JVP. No systemic edema. Pulmonary: Decreased breath sounds throughout without rales, rhonchi, or wheezes. No dullness to percussion. No accessory muscle use. Abdomen: Is soft, nontender, and nondistended. No hepatosplenomegaly. No masses. Extremities: No cyanosis, clubbing, or edema. Skin: No rash, jaundice, or bruising. LABORATORY EVALUATION: Shows chest x-ray shows increased opacity in the right lower lobe, thought to be mostly pulmonary edema. Antibiotics were discontinued, and Solu-Medrol was decreased. Leukocytosis has since decreased to 15.5 with these interventions from 18. Hemoglobin of 12.2, platelet count of 198. Sodium is 143, potassium 4.9, chloride 110, bicarbonate of 25, BUN is up to 29, creatinine of 0.84 with a glucose of 220. IMPRESSION: 1. Respiratory failure/hypoxic respiratory failure, likely secondary to pulmonary edema. Would recommend better rate control. This is going to be managed by primary team and cardiology. At this point in time, patient denies any anginal symptoms. He has no evidence of systemic edema. Trial off mechanical ventilation. Patient did pass spontaneous breathing trial this morning; however, he is at high risk for intubation due to the severity of his cardiomyopathy. 2. Abnormal chest x-ray, most likely pulmonary edema. Procalcitonin level was low. Removing antibiotic therapy today. 3. Leukocytosis, decreased with decreased Solu-Medrol. We will discontinue this today, especially in the face of hyperglycemia. 4. Hyperglycemia. Add Levemir 10. We will watch this cautiously as his blood sugar may become more normal now that he is off Solu-Medrol.
[2020-06-01] MEDS ORDERED: METOPROLOL TART 12.5 MG PER 1/2 TAB PO ONE (10:00)
--- NOTE | 2020-06-01 11:00 | IPNPDOC ---
Text Note Date of Service The patient was seen on 06/01/20. NOTE SUBJECTIVE: Patient was seen and examined this morning lying in bed, intubated and awake, although somewhat sedated. He responds to commands appropriately and nods to answer questions. No issues overnight per nursing. He did pass a breathing trial this morning and we were notified later in the morning that he was successfully extubated. OBJECTIVE PHYSICAL EXAMINATION: VITAL SIGNS: Please see below. GENERAL: Alert, comfortable, in no acute distress HEENT: Normocephalic, atraumatic, PERRLA, endotracheal tube in place at 23 cm NECK: Supple, trachea midline, no lymphadenopathy, no JVD CARDIOVASCULAR: Tachycardic with regular rhythm, normal S1 and S2. No murmurs, rubs, or gallops RESPIRATORY: Diffuse expiratory wheezing bilaterally with prolonged expiratory phase. ABDOMEN: Soft, nondistended, bowel sounds present, no masses or hepatosplenomegaly appreciated EXTREMITIES: No cyanosis or edema. Pulses 2+/4 in bilateral upper and lower extremities NEUROLOGIC: No focal deficits appreciated, responds appropriately to questions by nodding LABORATORY DATA, IMAGING STUDIES, MICROBIOLOGY: Please see below. ASSESSMENT/PLAN: 52-year-old male with history of diabetes mellitus and COPD admitted with acute hypercapnic respiratory failure secondary to pneumonia # Acute on chronic systolic and diastolic heart failure, suspicious ischemic cardiomyopathy -Echocardiogram revealed wall motion abnormalities, systolic dysfunction with EF 20-30%, grade 2 LV diastolic dysfunction. -BNP elevated at 1292, no prior available for comparison -Cardiology consult with Dr. Kwok, appreciate his input and recommendations for further management. -Pt started on digoxin and metoprolol, continue IV lasix for diuresis. # Acute hypercarbic hypoxic respiratory failure secondary to acute heart failure Patient was initially treated with an NIMV, and subsequently required intubation. [employer]/pulmonology consulted for vent management and further care, appreciate their input and recommendations. Pt has been extubated today but remains high risk for reintubation -CXR this morning stable from yesterday # Sepsis criteria met possibly secondary to heart failure Sputum culture pending, MRSA screen negative, strep pneumoniae and legionella urine antigens pending -Procalcitonin level low, abx have been discontinued, bacterial pneumonia less likely # COPD - solumedrol has been discontinued DuoNeb scheduled, albuterol neb q1h prn - restart home inhalers # Diabetes mellitus. Hold home oral hypoglycemic medications. Sliding-scale insulin while inpatient, hypoglycemic protocol. 10 units levemir qhs restarted today -IV steriods discontinued today, his hyperglycemia will likely improve with this. DVT prophylaxis: SC Lovenox. GI prophylaxis: IV Protonix DISPOSITION: Admitted inpatient to ICU, pending clinical improvement VS,Fishbone, I+O VS, Fishbone, I+O Laboratory Tests 06/01/20 04:40 Vital Signs Date Time Temp Pulse Resp B/P (MAP) Pulse Ox O2 Delivery O2 Flow Rate FiO2 06/01/20 10:33 104 132/76 06/01/20 07:49 35 06/01/20 07:30 97.8 23 94 Ventilator I&O- Last 24 Hours up to 6 AM 06/01/20 06:00 Intake Total 2120.2 ml Output Total 2200 ml Balance -79.8 ml GME ATTESTATION GME ATTESTATION My faculty preceptor for this patient encounter was physically present during the encounter and was fully available. All aspects of the patient interview, examination, medical decision making process, and medical care plan development were reviewed and approved by the faculty preceptor. The faculty preceptor is aware and concurs with the plan as stated in the body of this note and will attest to such by his/her cosignature. ATTENDING NOTE Patient was seen and examined by me. Agree with the above assessment and plan This patient who was admitted for hypercapnic hypoxic respiratory failure likely secondary to advanced COPD with possible underlying pneumonia and was intubated. Patient was followed by android developer as well and the patient was successfully extubated today. We do not have much information as we don't have any of his records. He is the incarcerated gentleman. He was found to have an EF of 15-20% and be still have to rule out ischemic versus nonischemic cardiomyopathy. He does not look like in decompensation. He still has been continued on Lasix as well as low-dose beta margo was added yesterday. Cardiology saw the patient and they have also ordered digoxin. . He continues to be slightly tachycardic in 100s and cardiology is following. This patient potentially could require LifeVest and further cardiac workup with a stress test and a cardiac cath eventually It is going to be taking as the patient is from the snf and LifeVest. Potentially will be a big issue that. In any case, the patient needs a very close cardiac follow-up. Currently, the medications are beta margo with metoprolol 25 twice a day which was increased from 12.5 twice a day today, and digoxin with 40 of IV Lasix. [employer]. Dr. Holland wants to take over the patient as primary as the patient is still having hypoxic respiratory failure and desaturated this morning. We will resume care once the patient is step down. They want us to sign off and resume care once the patient is out of the ICU. NUBIA XAVIER D.O. Jun 01, 2020 11:00 JESÚS MANNING MD Jun 01, 2020 13:25
[2020-06-01 12:00] LABS: ABG BASE EXCESS 1.2 (-2.0-2.0); ABG HCO3 23.9 MEQ/L (22.0-26.0); ABG O2 SATURATION 94.7 % (95.0-99.0); ABG PARTIAL PRESSURE CO2 32.3 mmHg (35.0-45.0); ABG PARTIAL PRESSURE O2 69.5 mmHg (75.0-100.0); ABG STANDARD HCO3 25.5 MEQ/L (22.0-26.0); ABG TOTAL CO2 24.9 MEQ/L (22.0-29.0); ABG pH (ARTERIAL) 7.487 UNITS (7.350-7.450)
[2020-06-01] MEDS ORDERED: NITROGLYCERIN 2% OINT 1 GM *U/D* PKT TOP SCH (12:00)
[2020-06-01] MEDS ORDERED: METOPROLOL 5 MG/5 ML VIAL IV STA (12:08)
--- NOTE | 2020-06-01 12:25 | CCN ---
DATE: 06/01/2020 This is an additional 30 minutes performed of critical care, and this excludes all procedures. Mr. Rivera, not surprisingly, is having more and more difficulty with hypoxia. I have discussed his case with primary team, and I have explained to them that unless his heart rate is managed and his cardiac status is optimized, he will continue to require ventilation. Therefore, I had to place him on bilevel noninvasive therapy. His heart rate has not been under 90 the entire morning. It is over 100 now. I suggested additional beta-blockade on multiple occasions. They indicated to me that they will now order it. In the meantime, I will continue to monitor the patient in intensive care unit (ICU) for potential further respiratory decline. However, again, I have stressed to the primary team that his cardiac management needs to be fine-tuned. Currently, I have placed him on bilevel 09/03. He is achieving tidal volumes of 500 or more on this setting. He feels much better, less tachypneic, and his pulse oximetry is improved. We will continue bilevel noninvasive ventilation and continue to monitor his clinical status.
[2020-06-01] MEDS: METOPROLOL TART 25 MG TABLET PO SCH ×2 (12:42→17:32)
[2020-06-01 12:55] LABS: NT-PRO BNP 1803 PG/ML (<125); TROPONIN I < 0.02 NG/ML (< 0.10)
[2020-06-01] MEDS: ADVAIR HFA 230/21MCG INHALER INH SCH ×2 (13:16→19:32)
--- NOTE | 2020-06-01 15:54 | CR ---
DATE OF CONSULTATION: 05/31/2020 DATE OF DICTATION: 06/01/2020 CARDIOLOGY CONSULTATION: REASON FOR CONSULTATION: Heart failure. PATIENT LOCATION: Room 3210. REFERRING PROVIDER: Dr. Nichol Ballesteros HISTORY OF PRESENT ILLNESS: 60-year-old male was brought from the local care home on 05/29/2020 because of a 3-day history of shortness of breath and cough. He has not been having any fever or chest pain or chills. He developed acute hypoxemic respiratory failure in the emergency room (ER) and was intubated. His pH was 7.15 with a pCO2 of 63. He was started first on bilevel positive airway pressure (BiPAP). He was then started on ceftriaxone for pneumonia. He was admitted in intensive care unit (ICU) for further management and monitoring. Echocardiogram was done on 05/30/2020, and it revealed a left ventricular ejection fraction (LVEF) reported to be 20-30%. Cardiology consult was called. When I saw Mr. Shawn Rivera yesterday in the evening in ICU, he was supine in bed in no acute distress at rest, intubated, and sedated. There were two nurses at bedside and two officers. Most of the information was taken from the chart and the nursing staff. He has been tachycardiac and he was started earlier in the morning on carvedilol, but he has not received any when I saw him. Blood pressure was low. He also received a dose of furosemide and has passed a significant amount of urine. PHYSICAL EXAMINATION: When I saw him, he was intubated and sedated, in no acute distress at rest. His blood pressure at that time was 95/54 with a pulse of 102, respiration 22, and his oxygen saturation was 93% on the ventilator with an FiO2 of 0.45. He has been afebrile. Examination of the head: Atraumatic. Neck: Is supple with slightly extended jugular. The lungs did not reveal any wheezing and no crackles heard anteriorly. Abdomen: Is soft. Extremities: Revealed no pedal edema. Neurological examination: Was not done. Pulse: Dorsalis pedis and radial pulses were palpated and equal. LABS: CBC on 05/31/2020 revealed a WBC of 18.1, hemoglobin 13.0, hematocrit 38.9, and platelets 194,000. On admission, 05/29/2020 at 2312 hours, the CBC revealed WBC of 15.4, hemoglobin 13.7, hematocrit 42.6, and platelets 291,000. BMP on 05/31/2020 revealed a sodium of 135, potassium 3.6, chloride 109, CO2 of 21, BUN 17, creatinine 0.88, GFR more than 60, fasting glucose 262, calcium 8.4. Serum phosphorus was 1.7 and serum magnesium 2.7. Liver enzymes revealed a total bilirubin of 0.6, AST 21, ALT 31, alkaline phosphatase 49, LDH 195, total protein 6.7, albumin 3.0. Serum troponin on admission was 0.02. Serum proBNP was 1292. Serum procalcitonin was 0.03. Serum lactic acid on admission was 3.9; and upon repeating it on 05/30/2020, it was 1.6. BMP on admission, 05/29/2020, revealed a sodium of 137, potassium 4.1, chloride 103, CO2 of 24, BUN 17, creatinine 1.1, GFR more than 60, fasting glucose of 343, calcium 8.2. Liver enzymes revealed a total bilirubin of 0.6, direct bilirubin 0.2, AST 24, ALT 31, alkaline phosphatase 64, total protein 7.0, albumin 3.5. Urine Legionella as well as Streptococcus pneumoniae are pending. MRSA not detected. Blood culture so far has been negative. Respiratory virus panel negative, including COVID-19. EKG on 05/30/2020 revealed normal sinus rhythm, IVCD. Echocardiogram on 05/30/2020 revealed a LVEF reported to be 20-30% with a borderline enlarged left ventricle, IVCD, and regional wall motion abnormalities. There was grade 2 left ventricular diastolic dysfunction. The inferior vena cava was reported to be mildly enlarged at 2.2 cm. No significant valvular heart disease reported. IMPRESSION: 1. A 60-year-old male, a resident of the local care home with a history of diabetes mellitus and smoking as well as bullous emphysema reported in his history, came to the ER with a 3-day history of gradually worsening shortness of breath associated with cough but no fever or chills. He has not been having any fever in the hospital. He developed respiratory failure in the ER and was first started on BiPAP, then on a ventilator. Echocardiogram revealed a severely depressed global left ventricular systolic function with intraventricular conduction delay (IVCD). It was reported in the echocardiogram, there was some regional wall motion abnormalities, but his serum troponin remained negative. The etiology of his left ventricular systolic dysfunction is not quite clear and will need to be investigated in the future. He was started on carvedilol, and he has not received it yet. I am going to start him on a small dose of short- acting metoprolol tartrate, and he will be started on digoxin because blood pressure is low. If his blood pressure remains stable, he will be started on one of the angiotensin-converting enzyme (WILFREDO) inhibitor, particularly if his kidney function remains stable. On physical examination, there is no manifestation of fluid retention and we shall be very careful with his diuretics. I will continue to monitor him along with you for his underlying cardiac condition while in the hospital. 2. Respiratory failure, probably related to a combination of factors, such as underlying pneumonia, chronic obstructive pulmonary disease (COPD) exacerbation, and heart failure. This is being addressed by the product safety technical assistant and the hospitalist. 3. Pneumonia. On intravenous (IV) antibiotics. 4. History of diabetes mellitus. This is being addressed. It was a pleasure to participate in the care of Mr. Shawn Rivera for his underlying cardiac condition. I will continue to monitor him along with you while in the hospital. Please do not hesitate to call if any question. JUAN JOSÉ
--- NOTE | 2020-06-01 15:59 | IPN ---
DATE: 06/01/2020 Mr. Shawn Rivera was seen earlier this afternoon. He was in supine in bed in no acute distress at rest, using a bilevel positive airway pressure (BiPAP) mask. He was alert and awake, and two officers were in the room. He denies any chest pain. He stated earlier today he was coughing, and he developed shortness of breath after his extubation and has been back on BiPAP. There is no orthopnea or paroxysmal nocturnal dyspnea (PND). There is no arrhythmia reported. He denies any headache or dizziness. There is no report of fever or chills. No pedal edema. There is no focal manifestation. He denies any abdominal. Case was discussed with nursing staff and the patient. Case was also discussed with the resident, because the patient was mildly tachycardiac, and blood pressure was slightly elevated. Nitroglycerine paste was recommended for the blood pressure. Earlier today, we have increased his oral Lopressor. PHYSICAL EXAMINATION: The patient is alert and oriented in no acute distress at rest. VITAL SIGNS: When I saw him revealed a blood pressure of 131/76 with a pulse of 92, respirations 20, and his maximum temperature was 96 degrees Fahrenheit with an oxygen saturation of 96% on an FiO2 of 0.5. He has a negative fluid balance of 144 mL for 05/31/2020, and so far he has a negative fluid balance of 1.2 liters. HEAD: Atraumatic. LUNGS: Did not reveal any wheezing, and there are no crackles noted anteriorly. No rhonchi. HEART: Revealed irregular heart sounds without gallops. The point of maximal impulse (PMI) is displaced inferiorly and laterally. There is no rub. I could not appreciate any murmurs. ABDOMEN: Unremarkable. EXTREMITIES: Did not reveal pedal edema. NEUROLOGIC: Not done. The patient was able to move all his upper extremities. LABORATORY DATA: CBC done this morning revealed a WBC of 15.5, hemoglobin 12.2. Hematocrit 37.7, and platelet 198,000. BMP done this morning revealed a sodium of 143, potassium 4.9, chloride 110, CO2 of 25, BUN 29, creatinine 0.84, GFR more than 60, fasting glucose 220, calcium 8.1. Liver enzymes revealed a total bilirubin of 0.2, AST 27, AST 37, alkaline phosphatase 49, total bilirubin 6.2, albumin 2.9. Serum troponin was 0.02 and serum proBNP was 1803. IMPRESSION: 1. Decompensated congestive heart failure secondary to left ventricular systolic dysfunction in the setting of probably pneumonia, exacerbation chronic obstructive pulmonary disease (COPD)/emphysema. The patient was in supine in bed in no acute distress at rest without any orthopnea. His heart rate has improved, and right now between 90 and 100, and it seems that he was given one dose of intravenous (IV) Lopressor. He is on oral Lopressor, and he was started on digoxin yesterday because he was hypotensive. If the blood pressure continues to be stable, we can increase the oral Lopressor as needed. He will continue with the digoxin, but he needs to be monitored. This should be adjusted as needed based on his kidney function. I am going to repeat a basic metabolic panel (BMP) later today, and if his kidney function is acceptable enough, he will be started on Entresto or angiotensin-converting enzyme (WILFREDO) inhibitor. In that case, we will need to monitor closely his BUN and creatinine and serum potassium. He is not retaining fluid on physical examination, and we have to be careful with the IV Lasix, particularly if he is started on the Entresto. 2. Status post respiratory failure, being addressed, back on BiPAP. He is being managed by set up mechanic. 3. Probably pneumonia. 4. Probably exacerbation of COPD/emphysema. 5. Diabetes mellitus. It was a pleasure to participate in the care of Mr. Shawn Rivera for his underlying cardiac condition. At this present time, he appears to be stable. We will continue to monitor him as needed. Please do not hesitate to call if any questions. JUAN JOSÉ
[2020-06-01 19:06] LABS: BLOOD UREA NITROGEN 25 MG/DL (7-18); CALCIUM LEVEL 8.4 MG/DL (8.5-10.1); CARBON DIOXIDE LEVEL 28 MEQ/L (21-32); CHLORIDE LEVEL 109 MEQ/L (98-107); CREATININE FOR GFR 0.88 MG/DL (0.70-1.30); GLOMERULAR FILTRATION RATE > 60.0 (>56); GLUCOSE, FASTING 117 MG/DL (70-100); POTASSIUM SERUM 4.4 MEQ/L (3.5-5.1); SODIUM LEVEL 144 MEQ/L (136-145)
[2020-06-01] MEDS ORDERED: METOPROLOL TART 25 MG TABLET PO SCH (20:00)
[2020-06-01] MEDS: LEVEMIR (INSULIN DETEMIR) 1 UNITS/0.01ML SC SCH (20:52)
[2020-06-02] VITALS (24 sets, daily range): BP systolic 107–144; BP diastolic 64–96
[2020-06-02] MEDS: IPRATROPIUM 0.5MG/ALBUTEROL 2.5MG INH SOL UD 3ML (DUONEB) INH SCH ×8 (00:03→23:08)
[2020-06-02] MEDS: METOPROLOL TART 25 MG TABLET PO SCH ×4 (00:56→17:21)
[2020-06-02] MEDS ORDERED: PROMETHAZINE INJ 25 MG/ML VIAL (J2550) IV ONE (01:30)
[2020-06-02 04:55] LABS: BASO % 0.1 % (0.0-1.0); EOS % 0.2 % (0.0-3.0); HEMATOCRIT 44.1 % (42.0-52.0); HEMOGLOBIN 14.1 g/dl (13.5-17.5); LYMPH # 1.6 10^3/uL (1.5-5.0); LYMPH % 11.7 % (24.0-44.0); MEAN CORPUSCULAR HEMOGLOBIN 28.5 pg (27.0-33.0); MEAN CORPUSCULAR VOLUME 89.3 fl (80.0-96.0); MONO % 7.1 % (0.0-5.0); NEUTROPHILS % 80.5 % (36.0-66.0); PLATELET COUNT, AUTOMATED 227 10^3/uL (150-450); RED BLOOD COUNT 4.94 10^6/uL (4.30-6.10); WHITE BLOOD COUNT 13.7 10^3/uL (4.0-10.0)
[2020-06-02 05:15] LABS: ALBUMIN 3.3 GM/DL (3.2-5.2); ALT/SGPT 47 U/L (12-78); BILIRUBIN,TOTAL 0.6 MG/DL (0.2-1.0); BLOOD UREA NITROGEN 27 MG/DL (7-18); CALCIUM LEVEL 8.5 MG/DL (8.5-10.1); CARBON DIOXIDE LEVEL 27 MEQ/L (21-32); CHLORIDE LEVEL 106 MEQ/L (98-107); CHOLESTEROL LEVEL 196 MG/DL (< 200); CPK CREATINE PHOSPHOKINASE 143 U/L (39-308); GLOMERULAR FILTRATION RATE > 60.0 (>56); GLUCOSE, FASTING 120 MG/DL (70-100); LDH LACTATE DEHYDROGENASE 238 U/L (87-241); PHOSPHORUS LEVEL 2.6 MG/DL (2.5-4.9); POTASSIUM SERUM 4.2 MEQ/L (3.5-5.1); SODIUM LEVEL 142 MEQ/L (136-145); TRIGLYCERIDES LEVEL 184 MG/DL (<150)
[2020-06-02] MEDS ORDERED: FUROSEMIDE 40MG/4ML VIAL (J1940) IV ONE (05:15)
[2020-06-02] MEDS ORDERED: PINK BISMUTH SUSP 524MG/30ML ORAL SYRINGE PO ONE (05:15)
[2020-06-02] MEDS ORDERED: PINK BISMUTH SUSP 524MG/30ML ORAL SYRINGE PO PRN (05:45)
[2020-06-02] MEDS: SUCRALFATE 1 GM TAB PO SCH ×3 (06:59→19:59)
[2020-06-02] MEDS: ADVAIR HFA 230/21MCG INHALER INH SCH ×2 (07:18→19:29)
[2020-06-02] MEDS: HumaLOG INSULIN (NovoLOG) PER UNIT SC SCH ×4 (07:39→19:52)
[2020-06-02] MEDS: ENOXAPARIN 40MG/0.4ML SYRINGE (J1650 PER 10MG) SC SCH (07:40)
[2020-06-02] MEDS: PANTOPRAZOLE 40MG VIAL (C9113 PER 1) IV SCH ×2 (07:40→19:58)
--- NOTE | 2020-06-02 08:23 | REP ---
Clinical: Heart failure. Comparison: 06/01/2020. Findings: Stable cardiomegaly. Chronic emphysematous changes are appreciated. Superimposed bilateral lower lobe infiltrates including retrocardiac consolidation again suggested. No effusion. No pneumothorax. Skeletal structures intact. Impression: COPD/emphysematous disease. Lower lobe opacities and retrocardiac consolidation cannot be excluded. Electronically Signed by Alvino Forrester MD 06/02/2020 08:14 A
[2020-06-02] MEDS: ASPIRIN ENTERIC 325 MG TAB PO SCH (08:39)
[2020-06-02 08:42] LABS: TROPONIN I 0.03 NG/ML (< 0.10)
--- NOTE | 2020-06-02 09:54 | CCN ---
DATE: 06/02/2020 CRITICAL CARE TIME: Was 55 minutes; this excludes all procedures. I was called multiple times this morning for nausea and vomiting. On interview, the patient states that he did have a prior history of an ulcer. He has no precordial chest discomfort. He denies any arm or neck discomfort. He has had no dizziness. He does have some back pain, but he states he believes it is because it is positional due to laying in bed. He is now laying on his side, and the pain is better in his back. He has had no diaphoresis. His heart rate is trending down to an average of 75-80, which is significantly better than yesterday. He denies any headache, change in vision. He denies any lower extremity pain. PHYSICAL EXAM: Temperature is 99.0, pulse is 84, respiratory rate is 20-24, blood pressure is 132/77, oxygen saturation is 90% on 30 liters FiO2 of 0.70. Yesterday, net diuresis is 2.382 liters. General: Awake, alert, conversant, oriented times three. HEENT: Sclerae clear and anicteric. Pupils equal and react to light. Mucous membranes are moist without lesions. Tongue is midline. Neck: Is supple. No tracheal deviation or mass. Lymphatics: No cervical, supraclavicular, or axillary adenopathy. Cardiac: Distant S1, S2 without audible murmur, rub, or gallop. No elevated JVP. No dependent edema. Pulmonary: Bibasilar rales without rhonchi or wheeze. Normal chest expansion. Abdomen: Soft, nontender, and nondistended. No hepatosplenomegaly. No masses or hernia. Extremities: No cyanosis, clubbing, or edema. LABORATORY EVALUATION: Shows sodium 142, potassium 4.2, chloride of 106, bicarbonate of 27, BUN of 27, creatinine of 0.8, glucose is down to 120. White blood cell count is 3.7, hemoglobin of 14.1, platelet count of 227 with 81% neutrophilia. Chest x-ray this morning is pending. Blood cultures so far no growth. IMPRESSION: 1. Respiratory failure secondary to decompensated heart failure. Management of heart rate is better currently on metoprolol 25 mg by mouth every 6 hours. Will consider adding angiotensin-converting enzyme (WILFREDO) inhibitor depending on renal function and blood pressure. At this point in time, it does not appear that he is having active ischemia. He is having nausea this morning and, therefore, this must be ruled out as an anginal equivalent. EKG this morning does not show any acute ischemic change but does show a moderate intraventricular conduction delay consistent with his cardiomyopathy along with evidence of left atrial enlargement. At this point in time, he does not have an emergent urgent indication for transfer for ischemic evaluation. However, if he continues to have flash pulmonary edema, this may be an option. 2. Nausea with history of ulcer. I have increased his Protonix to twice a day. Added sucralfate. He is diabetic. His hyperglycemia is under better control. If this regimen does not improve his symptoms, we will add Reglan. 3. Abnormal x-ray. At this point in time, there is no clinical evidence of pneumonia. The patient has no productive cough. White count was likely secondary to the addition of Solu-Medrol. His procalcitonin was very low. There is no culture data to suggest active infection. Antibiotics were stopped. His white count continues to improve. I believe the findings on x-ray were secondary to pulmonary edema. 4. Severe hypoxia. Remains severely hypoxic from pulmonary edema. At this point in time, there is no evidence of exacerbation. Steroids have been stopped. He is no longer wheezing. He has Advair and DuoNebs scheduled. 5. Leukocytosis, decreasing with stopping of Solu-Medrol. No evidence of active infection at this point in time. 6. Hyperglycemia. Glucose within range today after adding Levemir. Remains on sliding scale insulin. I am starting a consistent carbohydrate diet today. PROGNOSIS: Overall prognosis is guarded. Patient has a high risk of being reintubated due to his flash pulmonary edema. At this point in time, the exact cause of his cardiomyopathy has not been identified and differential remains wide, ischemic versus alcoholic. ADDENDUM: Chest x-ray was reviewed after being obtained this morning. There is improvement of the pulmonary edema, especially on the right, with diuresis. There continues to bilateral sides of pulmonary congestion without pleural effusion. Apices appear fairly clear with some evidence of emphysema. There is no pneumothorax. Addendum 06/02/2020 aml
[2020-06-02] MEDS ORDERED: METOCLOPRAMIDE INJ 10MG/2ML VIAL (J2765 PER 1) IV PRN (12:15)
[2020-06-02] MEDS ORDERED: METOCLOPRAMIDE INJ 10MG/2ML VIAL (J2765 PER 1) As Ordered ONE (12:17)
--- NOTE | 2020-06-02 14:04 | IPNPDOC ---
Subjective Date Seen The patient was seen on 06/02/20. Subjective Chief Complaint/HPI Mr. Rivera has remained on Vapotherm with an FiO2 of 70% so far today. Nursing has attempted to wean it, but as soon as she does he will desaturate. He indicates that he is reasonably comfortable as long as he lays still. His main complaint is musculoskeletal aches from having to lay still in the bed so much. He does recognize that if he starts to move around he will again desaturate. He's had nausea throughout the day, although it seems to be improving this afternoon. He has had several episodes of green rather bilious vomiting today. Constitutional: Denies: Chills, Fever Skin: Denies: Rash, Bruising Pulmonary: Reports: Dyspnea; Denies: Pleuritic Chest Pain Cardiovascular: Denies: Chest Pain, Palpitations, Edema Gastrointestinal: Reports: Nausea, Vomiting; Denies: Diarrhea, Constipation Objective Physical Examination General Exam: Positive: Alert (laying on his left side on the Vapotherm with two guards present when I enter the room), No Acute Distress, Other (he is d ifficult to get a reliable history from because he will give two entirely different answers to the same question within several minutes. It seems that he is trying to be helpful, but also that he is trying to figure out what the "right" answer to her questions are both for us and for the guards who are present in his room.) Eye Exam: Positive: Conjunctiva & lids normal; Negative: Sclera icteric ENT Exam: Positive: Mucous membr. moist/pink Neck Exam: Negative: Lymphadenopathy Chest Exam: Positive: Diminished; Negative: Wheezing (scattered throughout the posterior lung cruz) Heart Exam: Positive: Rate Normal, Regular Rhythm, Normal S1, Normal S2; Negative: Gallops, Murmurs Abdomen Exam: Positive: Normal bowel sounds, Soft; Negative: Tenderness, Hepatospenomegaly Extremity Exam: Negative: Clubbing, Edema Skin Exam: Negative: Rash Psych Exam: Positive: Other (I suspect his memory is intact, however, he gives variable answers because he is trying to answer the questions "right") Assessment /Plan Problems (1) Cardiomyopathy, unspecified Problem Text: I suspect the underlying cause of many of his acute problems is cardiomyopathy. There are many unanswered questions about this like whether it's acute or acute on chronic. What is the etiology of his cardiomyopathy? Based on the limited history we are able to obtain from the patient and statistics, it seems most likely that this is an ischemic cardiomyopathy. The next question is when was his acute event. His history is not helpful with regards to this answ er. It's also possible that the etiology of the cardiomyopathy is alcoholic, although he denies history of ever having drank heavily. It could also be cocaine related, although he reports that the last time he used cocaine was many years ago. Would he benefit from a cardiac catheterization? Would he benefit from an ICD or Life Vest? What about a left ventricular assist device? Does need to be anticoagulated and if so with what? We will have to work to continue to try to clarify these questions. Cardiology's input on these questions would be very helpful. (2) Combined systolic and diastolic heart failure, acute Status: Acute Discussed With: Nurse, Patient Problem Specific Plan: Monitor Clinically Problem Text: In the meantime he has acute exacerbation of combined heart failure. It's not clear whether this combined heart failure is chronic or whether this is also a new phenomenon. (3) Acute respiratory failure with hypoxemia Status: Acute Problem Text: The heart failure is causing a hypoxemic and at times hypercarbic respiratory failure. He is currently stable on Vapotherm but with an FiO2 of 70%. He has required bilevel NIPPV within the last 24 hours. This is a particular concern with his concurrent nausea and vomiting. We will have to manage this risk carefully. (4) Leukocytosis Status: Acute Response to Treatment: Improving Problem Specific Plan: Repeat Labs Problem Text: Leukocytosis appears to be improving as we wean him off steroids. We'll continue to monitor this carefully. (5) Type 2 diabetes mellitus Status: Chronic Problem Text: He is on oral medications while in alf. While here we'll manage him with sliding scale insulin, at least until we can verify he will not require any dye studies. (6) COPD (chronic obstructive pulmonary disease) Status: Chronic Problem Text: It appears his COPD may be stable, and that the acute pulmonary symptoms are not exacerbation or pneumonia but instead related to flash pulmonary edema from his acute heart failure. Pulmonology is working to take him off of the steroids and antibiotics. (7) Nausea Status: Acute Problem Specific Plan: Monitor Clinically Problem Text: The etiology of this is uncertain. It certainly could be a self- limited viral infection. It also may be related to mesenteric ischemia because of poor systemic perfusion from his heart failure. He could have diabetic gastroparesis. His history of ulcer and the increased physiologic stress of his other medical conditions certainly might be another etiology of this symptom. He is currently being managed with Reglan because this may help with several of the above potential etiologies. It does seem like his nausea is slowly improving. We will continue current regimen and monitor. (8) History of gastric ulcer Status: Chronic Problem Text: We have no clear evidence that he has upper GI bleeding, with history of nausea along with the acute physiologic stress he is clearly under is concerning. He was started on pantoprazole and Carafate today. We'll monitor. Plan/VTE VTE Prophylaxis Ordered?: Yes (Lovenox at prophylactic doses) VS, I&O, 24H, Fishbone Vital Signs/I&O Vital Signs Date Time Temp Pulse Resp B/P (MAP) Pulse Ox O2 Delivery O2 Flow Rate FiO2 06/02/20 13:00 89 136/85 (102) 92 HVNI-Vapotherm 30.0 70 06/02/20 08:00 98.0 26 I&O- Last 24 Hours up to 6 AM 06/02/20 05:59 Intake Total 527.8 ml Output Total 3535 ml Balance -3007.2 ml Laboratory Data 24H LABS Laboratory Tests 2 06/01/20 17:23: Bedside Glucose (Misc Panel) 118H 06/01/20 18:34: Anion Gap 7L, Glomerular Filtration Rate > 60.0, Calcium Level 8.4L 06/01/20 20:45: Bedside Glucose (Misc Panel) 116H 06/02/20 04:25: Anion Gap 9, Glomerular Filtration Rate > 60.0, Calcium Level 8.5, Immature Granulocyte % (Auto) 0.4, Neutrophils (%) (Auto) 80.5H, Lymphocytes (%) (Auto) 11.7L, Monocytes (%) (Auto) 7.1H, Eosinophils (%) (Auto) 0.2, Basophils (%) (Auto) 0.1, Neutrophils # (Auto) 11.0H, Lymphocytes # (Auto) 1.6, Monocytes # (Auto) 1.0H, Eosinophils # (Auto) 0.0, Basophils # (Auto) 0.0, Nucleated Red Blood Cells % (auto) 0.0, Phosphorus Level 2.6, Total Bilirubin 0.6#, Aspartate Amino Transf (AST/SGOT) 20, Alanine Aminotransferase (ALT/SGPT) 47, Alkaline Phosphatase 61, Lactate Dehydrogenase 238, Total Creatine Kinase 143, Troponin I 0.03#, Total Protein 7.0, Albumin 3.3, Albumin/Globulin Ratio 0.9, Triglycerides Level 184H, Cholesterol Level 196 06/02/20 07:27: Bedside Glucose (Misc Panel) 166H 06/02/20 11:18: Bedside Glucose (Misc Panel) 138H CBC/BMP Laboratory Tests 06/01/20 18:34 06/02/20 04:25 Microbiology Microbiology 05/29/20 Blood Culture - Preliminary, Resulted No Growth after 72 hours. All specime... 05/29/20 Blood Culture - Preliminary, Resulted No Growth after 72 hours. All specime... 05/29/20 Respiratory Virus Panel (PCR) ([facility]) - Final, Complete Luis Angel Paz MD Jun 02, 2020 14:04
--- NOTE | 2020-06-02 18:38 | ECGEPIP ---
[facility] Test Date: 2020-06-02 Pat Name: BENI ADAM Department: Room: [place] [address] Gender: Male Copy Lathe Operator: JONATHON : 1960 Requested By: JEANNETTE Henao Order Number: [id number] Reading MD: Yonatan Kwok Measurements Intervals [place] Rate: 85 P: 70 [place]: 163 QRS: -23 QRSD: 125 T: 111 QT: 357 QTc: 426 Interpretive Statements SINUS RHYTHM POSSIBLE LEFT ATRIAL ENLARGEMENT LEFT AXIS DEVIATION MODERATE INTRAVENTRICULAR CONDUCTION DELAY MODERATE T-WAVE ABNORMALITY, CONSIDER LATERAL ISCHEMIA Last tracing on 05/30/20, 10:35. ST/T ABNORMALITIES HAVE IMPROVED Electronically Signed on 06-02-2020 18:38:02 EDT by Yonatan Kwko
[2020-06-02] MEDS: LEVEMIR (INSULIN DETEMIR) 1 UNITS/0.01ML SC SCH (19:59)
[2020-06-03] VITALS (15 sets, daily range): BP systolic 106–126; BP diastolic 59–77
[2020-06-03] MEDS: METOPROLOL TART 25 MG TABLET PO SCH ×4 (00:19→18:22)
[2020-06-03] MEDS: IPRATROPIUM 0.5MG/ALBUTEROL 2.5MG INH SOL UD 3ML (DUONEB) INH SCH ×4 (03:39→15:19)
[2020-06-03 04:15] LABS: BASO % 0.1 % (0.0-1.0); EOS # 0.2 10^3/uL (0.0-0.5); EOS % 1.5 % (0.0-3.0); HEMATOCRIT 41.8 % (42.0-52.0); HEMOGLOBIN 13.8 g/dl (13.5-17.5); LYMPH # 1.4 10^3/uL (1.5-5.0); LYMPH % 14.6 % (24.0-44.0); MEAN CORPUSCULAR HEMOGLOBIN 29.1 pg (27.0-33.0); MEAN CORPUSCULAR VOLUME 88.2 fl (80.0-96.0); MONO # 0.9 10^3/uL (0.0-0.8); MONO % 8.8 % (0.0-5.0); NEUTROPHILS # 7.3 10^3/uL (1.5-8.5); NEUTROPHILS % 74.5 % (36.0-66.0); PLATELET COUNT, AUTOMATED 204 10^3/uL (150-450); RED BLOOD COUNT 4.74 10^6/uL (4.30-6.10); WHITE BLOOD COUNT 9.8 10^3/uL (4.0-10.0)
[2020-06-03 04:48] LABS: ALBUMIN 3.1 GM/DL (3.2-5.2); ALT/SGPT 44 U/L (12-78); BILIRUBIN,TOTAL 0.7 MG/DL (0.2-1.0); BLOOD UREA NITROGEN 32 MG/DL (7-18); CALCIUM LEVEL 8.5 MG/DL (8.5-10.1); CARBON DIOXIDE LEVEL 30 MEQ/L (21-32); CHLORIDE LEVEL 104 MEQ/L (98-107); GLOMERULAR FILTRATION RATE > 60.0 (>56); GLUCOSE, FASTING 121 MG/DL (70-100); POTASSIUM SERUM 4.3 MEQ/L (3.5-5.1); SODIUM LEVEL 141 MEQ/L (136-145); TOTAL PROTEIN 6.6 GM/DL (6.4-8.2)
[2020-06-03] MEDS: PANTOPRAZOLE 40MG VIAL (C9113 PER 1) IV SCH (08:23)
[2020-06-03] MEDS: SUCRALFATE 1 GM TAB PO SCH ×2 (08:23→16:00)
[2020-06-03] MEDS: ENOXAPARIN 40MG/0.4ML SYRINGE (J1650 PER 10MG) SC SCH (08:23)
[2020-06-03] MEDS: ASPIRIN ENTERIC 325 MG TAB PO SCH (08:23)
[2020-06-03] MEDS: HumaLOG INSULIN (NovoLOG) PER UNIT SC SCH ×3 (08:23→17:30)
[2020-06-03] MEDS ORDERED: ISOVUE-370 76% 100ML VIAL As Ordered ONE (08:47)
[2020-06-03] MEDS: ADVAIR HFA 230/21MCG INHALER INH SCH (09:27)
[2020-06-03 10:33] LABS: ABG BASE EXCESS 3.4 (-2.0-2.0); ABG HCO3 27.7 MEQ/L (22.0-26.0); ABG O2 SATURATION 93.9 % (95.0-99.0); ABG PARTIAL PRESSURE CO2 41.1 mmHg (35.0-45.0); ABG PARTIAL PRESSURE O2 68.8 mmHg (75.0-100.0); ABG STANDARD HCO3 27.4 MEQ/L (22.0-26.0); ABG pH (ARTERIAL) 7.447 UNITS (7.350-7.450)
--- NOTE | 2020-06-03 11:08 | REP ---
REASON: Hypoxia. PRIORS: There are no priors for comparison. CONTRAST: 100 mL Isovue 370. There is excellent visualization of the pulmonary arterial vasculature. There are no focal filling defects present that would be considered consistent with acute pulmonary emboli. There is no pericardial effusion. The imaged upper abdomen is within normal limits. The imaged osseous structures are within normal limits. There are numeral nonenlarged mediastinal lymph nodes. There is evidence of subcarinal adenopathy and mild bilateral hilar adenopathy. Evaluation of the lung cruz shows marked emphysematous changes with parenchymal bulla and pleural blebs. Bilateral lower lobe dependent opacities are seen with air bronchograms. These changes could hide a significant nodule. IMPRESSION: 1. No evidence of pulmonary embolus. 2. Adenopathy as described above. 3. Bilateral lung field opacities as described above, pneumonia and/or atelectasis. 4. Advanced chronic emphysematous changes as described above. Electronically Signed by Daniel Bennett DO 06/03/2020 01:22 P
[2020-06-03] MEDS: SIMETHICONE 80 MG CHEW TAB PO SCH ×2 (12:27→16:00)
--- NOTE | 2020-06-03 12:44 | CCN ---
DATE OF SERVICE: 06/03/2020 Critical care time is 1 hour; this excludes all procedures. HISTORY OF PRESENT ILLNESS: The patient states his nausea is better. He is having some posterior chest discomfort. Because of the patient remains so hypoxic I performed a chest CT angiogram this morning. At this point in time, I do not see any significant pulmonary embolism, however radiology has yet to interpret. The patient remains on 70% FiO2 at 30 Liters Vapotherm. No improvement in his oxygen requirements overnight. The patient states his nausea is better. He is having some posterior chest discomfort that he states is from the bed. He has not yet been out of bed to chair. PHYSICAL EXAMINATION: Temperature is 91. Pulse is much better controlled at 66. Respiratory rate is 22. Blood pressure is 119/77 with a mean arterial pressure of 91. Oxygen saturation is ranging 91-95% on 70% FiO2 30 liters. GENERAL: Awake, alert and oriented. Affect and mood appropriate. Nutrition and hygiene are good. HEENT: Sclerae are clear and anicteric. Pupils equal, react to light. Mucous membranes moist without lesions. PULMONARY: Clear to auscultation anteriorly and posteriorly, decreased breath sounds, dull to percussion approximately one-third of the bases bilaterally. There are basilar rales present. Cardiac: Distant Regular s1, s2, without murmur rub, or gallop. ABDOMEN: Soft, nontender, nondistended. No hepatosplenomegaly. No masses or hernia. EXTREMITIES: There is clubbing. No cyanosis. No lower extremity edema. Laboratory evaluation shows a white blood cell count of 9.8, hemoglobin 13.8, platelet count of 204. Sodium is 141, potassium 4.3, chloride is 104, bicarbonate of 30, BUN of 32, creatinine 0.8. BNP is 1803. Arterial blood gas shows a pH of 7.49, pCO2 of 33, pAO2 of 70. Chest CT as mentioned above shows bilateral dependent edema with atelectasis. No evidence of pneumonia. No evidence yet of pulmonary embolism, however, has not been officially read by radiology. IMPRESSION: 1. Severe hypoxia from congestive heart failure, bilateral dependent atelectasis with edema with apical emphysema. No evidence of exacerbation at this point in time. Will continue to monitor heart rate. I agree the main question is when to send the patient for ischemic evaluation and whether to start anticoagulation. 2. Occupational and physical therapy I have ordered this while on telemetry. The patient is having some weakness. 3. Nausea improved with treatment with sucralfate and Protonix. 4. Deep venous thrombosis (DVT) prophylaxis with Lovenox. MTDD
--- NOTE | 2020-06-03 16:03 | DS.PDOC ---
Discharge Summary General Date of Admission May 29, 2020 at 23:50 Date of Discharge Date of (anticipated) Transfer: 06/03/2020 Attending Physician: JEANNETTE VALLEJO Specialist/Consultants Involve: TAYE CAUSEY MD Specialist/Consultants Involve Gabby Sinhaist Physicians Discharge Summary ADMITTING DIAGNOSES: 1. Acute hypercapnic respiratory failure. 2. Sepsis, likely secondary to pneumonia. 3. Acute COPD exacerbation, secondary to pneumonia. 4. Insulin-dependent diabetes. DISCHARGE/TRANSFER DIAGNOSES: 1. Cardiomyopathy, etiology uncertain. 2. Acute combined systolic and diastolic heart failure. 3. Acute respiratory failure with severe hypoxia. 4. Leukocytosis. 5. Type 2 diabetes. 6. COPD. 7. Nausea. 8. History of gastric ulcer. PROCEDURES PERFORMED DURING STAY: Echocardiogram was done on 05/30/20. Briefly it showed left ventricle upper limits of normal in size with borderline symmetric hypertrophy. Paradoxical septal wall motion and apical akinesis suggestive of left bundle branch block. Lateral wall motion was normal but inferior and anterior turcios appeared to be somewhat hypokinetic. Fairly severe impairment of global resting systolic function. At least mildly dilated left atrium with grade 2 left ventricular diastolic dysfunction, but currently estimated mean left atrial pressure upper limits of normal. Borderline dilated right heart chambers with normal right ventricular free wall motion and Doppler evidence of mild pulmonary hypertension. Mildly dilated inferior vena cava with reduced respiratory collapse in keeping with an elevated central venous pressure. ADMISSION HISTORY: This is a 60-year-old gentleman who [facility] of 3 day duration, gradually worsening shortness of breath associated with a cough. Please see the admission history and physical for the remaining details. HOSPITAL COURSE: Mr. Rivera was admitted for acute hypercapnic respiratory failure and placed on NIMV. Very shortly thereafter he was intubated and ventilated. The initial thought was that he was septic from a pneumonia and COPD exacerbation, that turned out not to be true. Rather it seems that he was in acute on chronic mixed heart failure with flash pulmonary edema (echo as above). He was successfully extubated after roughly 48 hours mechanical ventilation. There is some difficulty controlling his heart rate and this ended up requiring additional NIMV, but he did not have to be intubated again. Once the heart rate was controlled he was stable on a combination of Vapotherm with an FiO2 of 70% while awake and BiPAP while resting. He seemed to have some increased nausea and several episodes of vomiting related to the BiPAP use so we have tried to minimize his symptoms with Reglan and simethicone. There is also concerned about his history of gastric ulcer so we empirically added sucralfate and Protonix. His leukocytosis seems to be improving as the steroids are weaned (since he doesn't have a COPD exacerbation). His diabetes is similarly improving. The main reason we are requesting transfer is that it is clear that we can sta bilize him from a cardiorespiratory standpoint, however, we cannot determine the etiology of his cardiomyopathy (ischemic or otherwise possibly necessitating a biopsy). Nor can we treat what we would likely find if we could determine the etiology. That requires a more robust cardiovascular service and we have here. He was accepted at [facility] onto the service of Dr. Stover. DISCHARGE CONDITION: Guarded. FOLLOW-UP: Upon discharge his follow-up should be with the physician who cares for [facility]. ACTIVITY: Up to chair with assist. DIET: Consistent carbohydrate. DISCHARGE MEDICATIONS: Please see below. ALLERGIES: Please see below. LABORATORY DATA: Please see below. IMAGING: Multiple chest x-rays, CT angiogram of the chest. TIME SPENT ON DISCHARGE: Greater than 40 minutes. Vital Signs/I&Os Vital Signs Date Time Temp Pulse Resp B/P (MAP) Pulse Ox O2 Delivery O2 Flow Rate FiO2 06/03/20 12:36 74 24 91 NIPPV (BIPAP/CPAP) 60 06/03/20 12:00 40.0 06/03/20 12:00 98.1 106/62 (77) I&O- Last 24 Hours up to 6 AM 06/03/20 06:00 Intake Total 1480 ml Output Total 2825 ml Balance -1345 ml Laboratory Data Labs 24H Laboratory Tests 2 06/02/20 16:54: Bedside Glucose (Misc Panel) 127H 06/02/20 19:44: Bedside Glucose (Misc Panel) 112H 06/03/20 04:00: Immature Granulocyte % (Auto) 0.5, Neutrophils (%) (Auto) 74.5H, Lymphocytes (%) (Auto) 14.6L, Monocytes (%) (Auto) 8.8H, Eosinophils (%) (Auto) 1.5, Basophils (%) (Auto) 0.1, Neutrophils # (Auto) 7.3, Lymphocytes # (Auto) 1.4L, Monocytes # (Auto) 0.9H, Eosinophils # (Auto) 0.2, Basophils # (Auto) 0.0, Nucleated Red Blood Cells % (auto) 0.0, Anion Gap 7L, Glomerular Filtration Rate > 60.0, Calcium Level 8.5, Total Bilirubin 0.7, Aspartate Amino Transf (AST/SGOT) 21, Alanine Aminotransferase (ALT/SGPT) 44, Alkaline Phosphatase 54, Total Protein 6.6, Albumin 3.1L, Albumin/Globulin Ratio 0.9 06/03/20 10:19: Blood Gas Bicarbonate Standard 27.4H, Arterial Blood pH 7.447, Arterial Blood Partial Pressure CO2 41.1, Arterial Blood Partial Pressure O2 68.8L, Arterial Bl ood Total CO2 29.0, Arterial Blood HCO3 27.7H, Arterial Blood Base Excess 3.4H, Arterial Blood Oxygen Saturation 93.9L 06/03/20 11:46: Bedside Glucose (Misc Panel) 221H CBC/BMP Laboratory Tests 06/03/20 04:00 FSBS Laboratory Tests Test 06/02/20 16:54 06/02/20 19:44 06/03/20 11:46 Range/Units Bedside Glucose (Misc Panel) 127 112 221 70-105 MG/DL Microbiology Microbiology 05/29/20 Blood Culture - Preliminary, Resulted No Growth after 72 hours. All specime... 05/29/20 Blood Culture - Preliminary, Resulted No Growth after 72 hours. All specime... 05/29/20 Respiratory Virus Panel (PCR) ([facility]) - Final, Complete Discharge Medications Scheduled Fluticasone Propion/Salmeterol (Advair Hfa 230-21 Mcg Inhaler) 12 Gm Hfa.aer.ad, 2 PUFF INH BID, (Reported) Insulin Glargine,Hum.rec.anlog (Lantus Solostar) 100 Unit/1 Ml Insuln.pen, 10 UNITS SC QPM, (Reported) TAKES AROUND 1600 Metformin HCl (Metformin HCl) 1,000 Mg Tablet, 1,000 MG PO BID, (Reported) Sitagliptin Phosphate (Januvia) 100 Mg Tablet, 100 MG PO DAILY, (Reported) Scheduled PRN Albuterol Sulfate (Proair Hfa) 8.5 Gm Hfa.aer.ad, 2 PUFF INH Q4H PRN for S HORTNESS OF BREATH, (Reported) Ibuprofen (Ibuprofen) 600 Mg Tablet, 600 MG PO BID PRN for PAIN, (Reported) Allergies Coded Allergies: haloperidol (Verified Allergy, Intermediate, unknown, 05/29/20) Luis Angel Paz MD Jun 03, 2020 16:03
[2020-06-03] MEDS ORDERED: PANTOPRAZOLE 40MG TAB (PROTONIX) PO SCH (21:00)
[2020-06-04 14:08] LABS: BODY FLUID CULTURE Not indicated. (.); LEGIONELLA ANTIGEN URINE Negative (Negative); ORGANISM ID Not indicated. (.); SPECIMEN SOURCE Urine (.); URINE STREP PNEUMONIAE ANTIGEN Negative (Negative)
== END 2020-06-03 19:03 | disposition short-term general hospital (02) | DRG 194 ==
LOC: M ED 22:39 → M ED INP 23:50 → ENRESERV 05-30 00:09 → M ICU 05-30 01:03
PROVIDERS: ADMIT Internal Medicine; ATTEND Family Medicine
PROC: 5A1945Z Respiratory Ventilation, 24-96 Consecutive Hours (ICD-10-PCS; principal; 2020-05-30)
DX: I50.41 Acute combined systolic (congestive) and diastolic (congestive) heart failure (principal); J96.01 Acute respiratory failure with hypoxia; J18.9 Pneumonia, unspecified organism; J44.1 Chronic obstructive pulmonary disease with (acute) exacerbation; I27.20 Pulmonary hypertension, unspecified; E11.65 Type 2 diabetes mellitus with hyperglycemia; E83.39 Other disorders of phosphorus metabolism; I42.9 Cardiomyopathy, unspecified; D72.829 Elevated white blood cell count, unspecified; Z79.899 Other long term (current) drug therapy; Z88.8 Allergy status to other drugs, medicaments and biological substances; E87.6 Hypokalemia